=== PATIENT | male | born 1990 | race Two or more races ===

== ENCOUNTER 2025-09-23 22:59 | Inpatient (IN) | payer BC, MEDICAID ==
[~2025-09-23] VITALS: Ht 182.9 cm; Wt 82.2 kg
[2025-09-24] VITALS (8 sets, daily range): BP systolic 114–136; BP diastolic 67–84; PULSE 57–89; RESP 16–20; TEMP 97.6–98.3; O2SAT 96–98
[2025-09-24] MEDS: MORPHINE SULFATE 4 MG/ML SYR/VIAL IV ONE (00:18)
[2025-09-24] MEDS: ONDANSETRON HCL 4 MG/2 ML VIAL IV ONE (00:19)
--- NOTE | 2025-09-24 00:41 | ED.PDOC ---
History of Present Illness HPI Comments 35 y/o M is BIBA for c/c of left leg pain. Patient reports on injuring himself after slipping on a wet tile shad, while walking at home, earlier, this evening. He states on having no prior symptoms, losing consciousness, or sustaining any head or additional injuries. Patient comments on hearing a "crack" emanating from said leg when he injured it. Denial of any numbness, tingling, or further acute symptoms. Chief Complaint: Lower Extremity Time Seen by MD: 23:50 Reviewed Notes: Nurses Notes, Medications, Allergies Allergies: Coded Allergies: NO KNOWN ALLERGIES (Unverified , 09/23/25) Information Source: Patient Mode of Arrival: EMS Severity: Moderate Timing: Hours Duration: Since onset Prehospital treatment: 12 Lead EKG, [facility], Pain Meds Past Medical History PAST MEDICAL HISTORY: Denies Surgical History (Other): previous left knee surgery Family History Family History: Reviewed,noncontributory to illness Social History Smoker: Non-Smoker Alcohol: Denies ETOH Use Drugs: Denies Drug Use Lives In: Home All Other Systems: Reviewed and Negative (As per HPI) Physical Exam General Appearance: No Apparent Distress, Normal HEENT: Normal ENT Inspection, Pharynx Normal, TMs Normal Neck: Full Range of Motion, Non-Tender, Normal, Normal Inspection Respiratory: Chest Non-Tender, Lungs Clear, No Accessory Muscle Use, No Respiratory Distress, Normal Breath Sounds Cardiovascular: No Edema, No JVD, No Murmur, No Gallop, Normal Peripheral Pulses, Regular Rate/Rhythm Breast Exam: Deferred Gastrointestinal: No Organomegaly, Non Tender, No Pulsatile Mass, Normal Bowel Sounds, Soft Genitalia: Deferred Pelvic: Deferred Rectal: Deferred Extremities: No calf tenderness, Normal capillary refill, Normal range of motion, No pedal edema, Tender (left knee ), Other (large left knee effusion) Musculoskeletal : Apperance: Normal Neurologic: Alert, flat folder II-XII nml as Tested, No Motor Deficits, Normal Affect, Normal Mood, No Sensory Deficits Cerebellar Function: Normal Reflexes: Normal Skin: Dry, Normal Color, Warm Lymphatic: No Adenopathy Was a procedure done? Was a procedure done?: No Differential Dx Considerations may include: fractures, contusions, dislocation, sprain, strain, among others X-Ray, Labs, Meds, VS Vital Signs Date Time Temp Pulse Resp B/P (MAP) Pulse Ox O2 Delivery O2 Flow Rate FiO2 09/24/25 00:48 98 28 129/38 09/24/25 00:18 87 19 129/38 09/23/25 23:20 97.8 98 19 134/85 (101) 97 97.8 09/23/25 23:05 97.7 87 15 123/66 97 97.7 Lab Test 09/24/25 01:00 Range/Units White Blood Count 17.1 H 4.4-10.8 10^3/uL Red Blood Count 5.33 4.5-5.90 10^6/uL Hemoglobin 16.0 13.5-17.5 g/dL Hematocrit 47.2 41.0-53.0 % Mean Corpuscular Volume 88.6 80.0-100.0 fL Mean Corpuscular Hemoglobin 30.1 28.0-32.0 pg Mean Corpuscular Hemoglobin Concent 34.0 32.0-36.0 g/dL Red Cell Distribution Width 13.0 11.8-14.3 % Platelet Count 416 140-450 10^3/uL Mean Platelet Volume 7.4 6.9-10.8 fL Neutrophils (%) (Auto) 86.2 H 37.0-80.0 % Lymphocytes (%) (Auto) 10.9 10.0-50.0 % Monocytes (%) (Auto) 2.6 0.0-12.0 % Eosinophils (%) (Auto) 0.1 0.0-7.0 % Basophils (%) (Auto) 0.2 0.0-2.0 % Neutrophils # (Auto) 14.7 H 1.6-8.6 10 ^3/uL Lymphocytes # (Auto) 1.9 0.4-5.4 10 ^3/uL Monocytes # (Auto) 0.4 0-1.3 10 ^3/uL Eosinophils # (Auto) 0 0-0.8 10 ^3/uL Basophils # (Auto) 0 0-0.2 10 ^3/uL Nucleated Red Blood Cells 0.1 % Prothrombin Time 10.8 9.3-11.8 sec Prothrombin Time INR 1.02 0.9-1.15 Activated Partial Thromboplast Time 26.7 24.5-34.5 SEC Sodium Level 140 136-145 mmol/L Potassium Level 3.9 3.5-5.1 mmol/L Chloride Level 103 98-107 mmol/L Carbon Dioxide Level 24 20-31 mmol/L Anion Gap 13 5-15 Blood Urea Nitrogen 7 L 9-23 mg/dL Creatinine 0.87 0.700-1.30 mg/dL Glomerular Filtration Rate Calc 117 >90 mL/min BUN/Creatinine Ratio 8.0 L 10.0-20.0 Serum Glucose 80 74-106 mg/dL Calcium Level 9.3 8.7-10.4 mg/dL Current Medications Medications (Trade) Dose Ordered Sig/Leighann Route Start Time Stop Time Status Last Admin Morphine Sulfate 4 mg ONCE ONCE IV 09/24/25 00:00 09/24/25 00:01 DC 09/24/25 00:18 Ondansetron HCl (Zofran) 4 mg ONCE ONCE IV 09/24/25 00:00 09/24/25 00:01 DC 09/24/25 00:19 Sodium Chloride 1,000 ml @ 1,000 mls/hr Q1H ONCE IVB 09/24/25 01:00 09/24/25 01:59 DC 09/24/25 01:22 Time of 1ST Reevaluation: 00:20 Reevaluation 1ST: Unchanged Patient Education/Counseling: Diagnosis, Treatment Family Education/Counseling: No Family Present SEPSIS Sepsis Screen Date sepsis recognized/suspect: Sep 23, 2025 Time Sepsis recognized/suspect: 2304 Recent Procedure: No On Antibiotic Therapy: No Respiratory Rate >20: No Heart Rate >90: No Temp<36 C (96.8 F) or >38.3 C: No SBP <90 or MAP <65 mmHG: No New Acute Mental Status Change: No Is the patient on CPAP, BIPAP,: No Physician Orders L Femur Xray (09/23/25 23:57) L Tib Fib Xray (09/23/25 23:57) * Orthopedic Consult (09/24/25 00:50) Vital Signs Date Time Temp Pulse Resp B/P (MAP) Pulse Ox O2 Delivery O2 Flow Rate FiO2 09/24/25 00:48 98 28 129/38 09/24/25 00:18 87 19 129/38 09/23/25 23:20 97.8 98 19 134/85 (101) 97 97.8 09/23/25 23:05 97.7 87 15 123/66 97 97.7 Laboratory Tests Test 09/24/25 01:00 White Blood Count 17.1 10^3/uL (4.4-10.8) H Medications Medications Dose Ordered Sig/Leighann Route Start Time Stop Time Status Last Admin Dose Admin Morphine Sulfate 4 mg ONCE ONCE IV 09/24/25 00:00 09/24/25 00:01 DC 09/24/25 00:18 Ondansetron HCl 4 mg ONCE ONCE IV 09/24/25 00:00 09/24/25 00:01 DC 09/24/25 00:19 Sodium Chloride 1,000 ml @ 1,000 mls/hr Q1H ONCE IVB 09/24/25 01:00 09/24/25 01:59 DC 09/24/25 01:22 Departure 1 Departure Time of Disposition: 02:13 Impression: Primary Impression: Closed fracture of left femur with malunion Disposition: ADMITTED INPATIENT Admit to: Med Surg Condition: Guarded Discharged With: Self Comments 35-year-old man with previous hardware in his left hip from a prior fracture now with a closed oblique left distal femur fracture that is somewhat displaced. He is neurovascularly intact. I ordered orthopedic consultation and preop laboratory workup. Patient will need to be admitted for supportive care and orthopedic consultation. Critical Care Note Critical Care Time?: No Stability Stability form required: No Heart Score Heart Score: Heart Score Response (Comments) Value History N/A 0 EKG N/A 0 Age N/A 0 Risk Factors N/A 0 Troponin N/A 0 Total 0 I personally scribed for SAPPHIRE ENCINAS MD ([email or web address]) on 09/24/25 at 00:41. Electronically submitted by Link Fernandes ([email or web address]). SAPPHIRE ENCINAS MD Sep 24, 2025 00:41
[2025-09-24 01:13] LABS: Hematocrit 47.2 % (41.0-53.0); Hemoglobin 16.0 g/dL (13.5-17.5); Mean Corpuscular Hemoglobin 30.1 pg (28.0-32.0); Mean Corpuscular Volume 88.6 fL (80.0-100.0); Nucleated Red Blood Cells % 0.1 %
[2025-09-24 01:18] LABS: Chloride 103 mmol/L (98-107); Potassium 3.9 mmol/L (3.5-5.1); Sodium 140 mmol/L (136-145)
[2025-09-24 01:19] LABS: Anion Gap 13 (5-15); Calcium 9.3 mg/dL (8.7-10.4); Carbon Dioxide 24 mmol/L (20-31)
--- NOTE | 2025-09-24 01:21 | DVH ---
EXAM: XY L TIB FIB XRAY, XY L FEMUR XRAY REASON FOR EXAM: Pain s/p fall. TECHNIQUE: Four views of the left femur and two views of the left tibia/fibula. COMPARISON: None available. FINDINGS: Acute jkum-vd-kuraihfygl displaced oblique fracture of the distal femoral diaphysis with approximately 26 mm displacement. No acute fracture or dislocation of the tibia or fibula. Extensive hardware fixation of the proximal tibia. Hardware appears intact. Euvuyzjo-uh-yphutk arthritis of the knee with greater than 50% joint space narrowing in the lateral compartment and less than 50% joint space narrowing in the medial compartment in addition to mild tricompartmental osteophytosis. Questionable mild demineralization of the osseous structures. Soft tissues are unremarkable. IMPRESSION: 1. Acute zezp-ch-vvpqrzjsku displaced oblique fracture of the left distal femoral diaphysis. 2. No acute fracture or dislocation of the left tibia or fibula. 3. Extensive hardware fixation of the left proximal tibia. Hardware appears intact. 4. Hdnwkzkf-nm-quodcg arthritis of the left knee.
--- NOTE | 2025-09-24 01:21 | DVH ---
EXAM: XY L TIB FIB XRAY, XY L FEMUR XRAY REASON FOR EXAM: Pain s/p fall. TECHNIQUE: Four views of the left femur and two views of the left tibia/fibula. COMPARISON: None available. FINDINGS: Acute rayz-qv-yvwokysoft displaced oblique fracture of the distal femoral diaphysis with approximately 26 mm displacement. No acute fracture or dislocation of the tibia or fibula. Extensive hardware fixation of the proximal tibia. Hardware appears intact. Ybzujftx-nd-ppqfqc arthritis of the knee with greater than 50% joint space narrowing in the lateral compartment and less than 50% joint space narrowing in the medial compartment in addition to mild tricompartmental osteophytosis. Questionable mild demineralization of the osseous structures. Soft tissues are unremarkable. IMPRESSION: 1. Acute ncqs-le-kqalicopkk displaced oblique fracture of the left distal femoral diaphysis. 2. No acute fracture or dislocation of the left tibia or fibula. 3. Extensive hardware fixation of the left proximal tibia. Hardware appears intact. 4. Gjfpzsex-kg-pyinhl arthritis of the left knee.
[2025-09-24] MEDS: SODIUM CHLORIDE 0.9% 1,000 ML IVB ONE (01:22)
[2025-09-24 01:24] LABS: BUN/Creatinine Ratio 8.0 (10.0-20.0); Glucose 80 mg/dL (74-106)
[2025-09-24 01:27] LABS: INR 1.02 (0.9-1.15); Partial Thromboplastin Time 26.7 SEC (24.5-34.5); Prothrombin Time 10.8 sec (9.3-11.8)
[2025-09-24 01:29] LABS: Blood Urea Nitrogen 7 mg/dL (9-23)
[2025-09-24] MEDS ORDERED: MORPHINE SULFATE INJ 2 MG/ml SYRG IV PRN ×2 (02:15→02:45)
[2025-09-24] MEDS: D5W/SOD CHL 0.45% 1,000 ML IV SCH (02:15)
[2025-09-24] MEDS ORDERED: DOCUSATE SOD 100 MG CAP PO PRN (02:15)
[2025-09-24] MEDS ORDERED: ONDANSETRON HCL 4 MG/2 ML VIAL IV PRN (02:15)
[2025-09-24] MEDS ORDERED: ACETAMINOPHEN 325 MG TAB PO PRN (02:15)
[2025-09-24] MEDS ORDERED: NITROGLYCERIN 0.4 MG SL TAB SL PRN (02:45)
--- NOTE | 2025-09-24 02:50 | DVHHP2 ---
History of Present Illness Reason for Visit: Fall with injury History of Present Illness The patient is a 35-year-old male who denies past medical history presented to [facility] ED with complaint of left leg pain. Patient reports that his slipped and fell on a wet tile floor at home earlier this evening with sust ained injury. Patient was seen and evaluated in the ED, laboratory data shows WBC 17.1, platelets 416, sodium 140, potassium 3.9, BUN 7, creatinine 0.87, GFR 117, glucose 80, calcium 9.3, blood pressure 129/38, heart rate 98, temperature 97.8 F, O2 saturation 97% on room air. Left femur x-ray revealing acute mild to moderate displaced oblique fracture of the left distal femoral diaphysis. Please see medication orders section in the computer. On my assessment, patient denied chest pain, no headache, dizziness, loss of consciousness, diaphoresis, shortness of breaths, no abdominal pain, diarrhea, nausea, vomiting, fever, no chills. Patient was admitted for further evaluation and medical management. Past Medical History Denies past medical history Past Surgical History Left knee surgery Family History Reviewed, noncontributory to the management of this case. Past Social History The patient lives at home, denies smoking, alcohol or illicit drugs abuse. Review of Systems Constitutional: No: Fever, Chills, Sweats, Weakness, Malaise, Other Eyes: No: Pain, Vision change, Conjunctivae inflammation, Eyelid inflammation, Other, Redness ENT: No: Ear pain, Ear discharge, Nose pain, Nose discharge, Nose congestion, Mouth pain, Mouth swelling, Throat pain, Throat swelling, Other Respiratory: No: Cough, Dry, Shortness of breath, SOB with excertion, Wheezing, Hemoptysis, Pleuritic Pain, Sputum, Wheezing, Other Cardiovascular: No: Chest Pain, Palpitations, Orthopnea, Paroxysmal Noc. Dyspnea, Edema, Lt Headedness, Other Gastrointestinal: No: Nausea, Vomiting, Abdominal Pain, Diarrhea, Constipation, Melena, Hematochezia, Other Genitourinary: No Dysuria, No Frequency, No Incontinence, No Hematuria, No Retention, No Other Musculoskeletal: leg pain (Left); No: other, neck pain, shoulder pain, arm pain, back pain, hand pain, foot pain Skin: No: Rash, Lesions, Jaundice, Bruising, Other Neurological: No: Weakness, Numbness, Incoordination, Change in speech, Confusion, Seizures, Other Allergies: Coded Allergies: NO KNOWN ALLERGIES (Unverified , 09/23/25) Medications Current Medications Medications Dose Ordered Sig/Leighann Route Start Time Stop Time Status Last Admin Dose Admin Acetaminophen/ Hydrocodone Bitart 1 tab Q4HP PRN PO 09/24/25 02:15 Ondansetron HCl 4 mg Q4HP PRN IV 09/24/25 02:15 Docusate Sodium 100 mg BIDPRN PRN PO 09/24/25 02:15 Enoxaparin Sodium 40 mg DAILY SC 09/24/25 10:00 Acetaminophen 650 mg Q6HP PRN PO 09/24/25 02:15 Morphine Sulfate 2 mg Q4HPRN PRN IV 09/24/25 02:15 Ceftriaxone Sodium 50 ml @ 100 mls/hr DAILY@09 IV 09/25/25 09:00 Dextrose/Sodium Chloride 1,000 ml @ 75 mls/hr [id number] IV 09/24/25 02:15 Exam Vital Signs Vital Signs Date Time Temp Pulse Resp B/P (MAP) Pulse Ox O2 Delivery O2 Flow Rate FiO2 09/24/25 00:48 98 28 129/38 09/23/25 23:20 97.8 97 97.8 General Appearance: Alert, Oriented X3, Cooperative, No acute distress HEENT: Atraumatic, PERRLA, EOMI, Mucous membr. moist/pink Respiratory: Clear to auscultation, Normal air movement Cardiovascular: Regular rate, Normal S1, Normal S2, No murmurs Abdominal: Normal bowel sounds, Soft, No tenderness, No hepatospenomegaly, No masses Extremities: No clubbing, No cyanosis, No edema, Normal pulses, Other (Left leg tenderness.) Skin: No rashes, No significant lesion Neuro: Normal speech, Normal tone, Sensation intact, Cranial nerves 3-12 NL, Reflexes 2+, Other (Unsteady gait) Psych/Mental Status: Mental status NL, Mood NL Labs/Xrays Labs Test 09/24/25 01:00 Range/Units White Blood Count 17.1 H 4.4-10.8 10^3/uL Red Blood Count 5.33 4.5-5.90 10^6/uL Hemoglobin 16.0 13.5-17.5 g/dL Hematocrit 47.2 41.0-53.0 % Mean Corpuscular Volume 88.6 80.0-100.0 fL Mean Corpuscular Hemoglobin 30.1 28.0-32.0 pg Mean Corpuscular Hemoglobin Concent 34.0 32.0-36.0 g/dL Red Cell Distribution Width 13.0 11.8-14.3 % Platelet Count 416 140-450 10^3/uL Mean Platelet Volume 7.4 6.9-10.8 fL Neutrophils (%) (Auto) 86.2 H 37.0-80.0 % Lymphocytes (%) (Auto) 10.9 10.0-50.0 % Monocytes (%) (Auto) 2.6 0.0-12.0 % Eosinophils (%) (Auto) 0.1 0.0-7.0 % Basophils (%) (Auto) 0.2 0.0-2.0 % Neutrophils # (Auto) 14.7 H 1.6-8.6 10 ^3/uL Lymphocytes # (Auto) 1.9 0.4-5.4 10 ^3/uL Monocytes # (Auto) 0.4 0-1.3 10 ^3/uL Eosinophils # (Auto) 0 0-0.8 10 ^3/uL Basophils # (Auto) 0 0-0.2 10 ^3/uL Nucleated Red Blood Cells 0.1 % Prothrombin Time 10.8 9.3-11.8 sec Prothrombin Time INR 1.02 0.9-1.15 Activated Partial Thromboplast Time 26.7 24.5-34.5 SEC Sodium Level 140 136-145 mmol/L Potassium Level 3.9 3.5-5.1 mmol/L Chloride Level 103 98-107 mmol/L Carbon Dioxide Level 24 20-31 mmol/L Anion Gap 13 5-15 Blood Urea Nitrogen 7 L 9-23 mg/dL Creatinine 0.87 0.700-1.30 mg/dL Glomerular Filtration Rate Calc 117 >90 mL/min BUN/Creatinine Ratio 8.0 L 10.0-20.0 Serum Glucose 80 74-106 mg/dL Calcium Level 9.3 8.7-10.4 mg/dL PATIENT: NANCY FRIEDMAN ACCT: [id number] UNIT: [id number] : 1990 LOC: ER ROOM / BED: / AGE / SEX: 35 / M ADM STATUS: REG ER SERVICE 1324 ORDERING PHYSICIAN: SAPPHIRE ENCINAS MD PROCEDURE(s): LFEM - L FEMUR XRAY REASON: pain s/p fall ORDER NUMBER(s): [id number], ACCESSION NUMBER(s): [id number] EXAM: XY L TIB FIB XRAY, XY L FEMUR XRAY REASON FOR EXAM: Pain s/p fall. TECHNIQUE: Four views of the left femur and two views of the left tibia/fibula. COMPARISON: None available. FINDINGS: Acute gajv-da-vcvderqizl displaced oblique fracture of the distal femoral diaphy sis with approximately 26 mm displacement. No acute fracture or dislocation of the tibia or fibula. Extensive hardware fixation of the proximal tibia. Hardware appears intact. Cvushpwv-jt-yugblv arthritis of the knee with greater than 50% joint space narr owing in the lateral compartment and less than 50% joint space narrowing in the medial compartment in addition to mild tricompartmental osteophytosis. Questionable mild demineralization of the osseous structures. Soft tissues are unremarkable. IMPRESSION: 1. Acute toyo-bf-gcbrtixucc displaced oblique fracture of the left distal femoral diaphysis. 2. No acute fracture or dislocation of the left tibia or fibula. 3. Extensive hardware fixation of the left proximal tibia. Hardware appears intact. 4. Gbxnymjz-rw-wykcvl arthritis of the left knee. ORDERING PHYSICIAN: SAPPHIRE ENCINAS MD PROCEDURE(s): LTBFB - L TIB FIB XRAY REASON: pain s/p fall ORDER NUMBER(s): [id number], ACCESSION NUMBER(s): [id number] EXAM: XY L TIB FIB XRAY, XY L FEMUR XRAY REASON FOR EXAM: Pain s/p fall. TECHNIQUE: Four views of the left femur and two views of the left tibia/fibula. COMPARISON: None available. FINDINGS: Acute vpbg-rn-firxroimmy displaced oblique fracture of the distal femoral diaphysis with approximately 26 mm displacement. No acute fracture or dislocation of the tibia or fibula. Extensive hardware fixation of the proximal tibia. Hardware appears intact. Ldftrlsr-uq-hjboni arthritis of the knee with greater than 50% joint space narrowing in the lateral compartment and less than 50% joint space narrowing in the medial compartment in addition to mild tricompartmental osteophytosis. Questionable mild demineralization of the osseous structures. Soft tissues are unremarkable. IMPRESSION: 1. Acute iall-ly-cjqcmfwytz displaced oblique fracture of the left distal femoral diaphysis. 2. No acute fracture or dislocation of the left tibia or fibula. 3. Extensive hardware fixation of the left proximal tibia. Hardware appears intact. 4. Jhoqnuqp-lw-gkyogw arthritis of the left knee. SEPSIS Sepsis Screen Date sepsis recognized/suspect: Sep 24, 2025 Time Sepsis recognized/suspect: 105 Recent Procedure: No On Antibiotic Therapy: No Respiratory Rate >20: No Heart Rate >90: Yes Temp<36 C (96.8 F) or >38.3 C: No SBP <90 or MAP <65 mmHG: No New Acute Mental Status Change: No Is the patient on CPAP, BIPAP,: No Physician Orders L Femur Xray (09/23/25 23:57) L Tib Fib Xray (09/23/25 23:57) * Orthopedic Consult (09/24/25 00:50) Complete Blood Count (09/24/25 04:00) Comprehensive Metabolic Panel (09/24/25 04:00) Allergies (09/24/25 02:10) Code Status (09/24/25 02:10) Oxygen Per Hour (09/24/25 02:10) Hydrocodone-Acet 5/325mg Tab ([place] 5/32 (09/24/25 02:15) Ondansetron Hcl (Zofran) (09/24/25 02:15) Docusate Sodium Capsule (Colace Capsule) (09/24/25 02:15) Enoxaparin Sodium (Lovenox) (09/24/25 10:00) Fall Risk Precautions In Place QSHIFT (09/24/25 02:10) Complete Blood Count (09/25/25 04:00) Comprehensive Metabolic Panel (09/25/25 04:00) Condition: Serious (09/24/25 02:10) Acetaminophen Tablet (Tylenol Tablet) (09/24/25 02:15) Clear Liq Diet (09/24/25 Breakfast) Maintain Bed Rest (09/24/25 02:10) Morphine Sulfate Injection (09/24/25 02:15) Sequential Compression Device (09/24/25 ) Ceftriaxone 1gm/50ml (Rocephin) (09/24/25 02:15) Blood Culture (09/24/25 02:10) D5w/Sod Chl 0.45% (D5w 1/2ns) (09/24/25 02:15) Ceftriaxone 1gm/50ml (Rocephin) (09/25/25 09:00) Admit (09/24/25 02:32) Nitroglycerin Sublingual (Ntrostat Subli (09/24/25 02:45) Morphine Sulfate Injection (09/24/25 02:45) Notify Md Of Changes From Base (09/24/25 02:32) Brim Cutter For 24 Hours (09/24/25 02:32) Emergency Dysrhythmia Protocol (09/24/25 02:32) Rhythm Strips Once Every Shift (09/24/25 02:32) Oxygen By Nasal Cannula (09/24/25 02:32) Stat Ekg For Chest Pain (09/24/25 02:32) Vital Signs Date Time Temp Pulse Resp B/P (MAP) Pulse Ox O2 Delivery O2 Flow Rate FiO2 09/24/25 00:48 98 28 129/38 09/24/25 00:18 87 19 129/38 09/23/25 23:20 97.8 98 19 134/85 (101) 97 97.8 09/23/25 23:05 97.7 87 15 123/66 97 97.7 Laboratory Tests Test 09/24/25 01:00 White Blood Count 17.1 10^3/uL (4.4-10.8) H Medications Medications Dose Ordered Sig/Leighann Route Start Time Stop Time Status Last Admin Dose Admin Morphine Sulfate 4 mg ONCE ONCE IV 09/24/25 00:00 09/24/25 00:01 DC 09/24/25 00:18 4 MG Ondansetron HCl 4 mg ONCE ONCE IV 09/24/25 00:00 09/24/25 00:01 DC 09/24/25 00:19 4 MG Sodium Chloride 1,000 ml @ 1,000 mls/hr Q1H ONCE IVB 09/24/25 01:00 09/24/25 01:59 DC 09/24/25 01:22 1,000 MLS/HR Assessment/Plan Assessment/Plan Fall with injury Leukocytosis, unspecified Closed fracture of left femur with malunion Plan 1. Admit to telemetry unit 2. Breathing treatment 3. Pain control management 4. IV antibiotic management 5. Management of fluids and electrolytes 6. Consultation for orthopedic 7. Diagnostic test left femur x-ray 8. DVT prophylaxis-on Lovenox 9. Repeat labs CBC, CMP in a.m. 10. Continue with current medical management 11. Treatment plan discussed with patient and RN. Patient verbalized understanding. Plan discussed with: Patient, Other (RN) My Orders Orders - GILLIAN HARDWICK DNP Procedure Category Date Status Time Complete Blood Count LAB 09/24/25 Logged 04:00 Comprehensive LAB 09/24/25 Logged Metabolic Panel 04:00 Allergies JARVIS 09/24/25 In Process 02:10 Code Status CODE 09/24/25 Transmitted 02:10 Oxygen Per Hour RT 09/24/25 Transmitted 02:10 Hydrocodone-Acet PHA 09/24/25 In Process 5/325mg Tab ([place] 02:15 Ondansetron Hcl PHA 09/24/25 In Process (Zofran) 02:15 Docusate Sodium PHA 09/24/25 In Process Capsule (Colace 02:15 Enoxaparin Sodium PHA 09/24/25 In Process (Lovenox) 10:00 Fall Risk Precautions JARVIS 09/24/[address] 02:10 Complete Blood Count LAB 09/25/25 Verified 04:00 Comprehensive LAB 09/25/25 Verified Metabolic Panel 04:00 Condition: Serious JARVIS 09/24/25 In Process 02:10 Acetaminophen Tablet PHA 09/24/25 In Process (Tylenol Tablet) 02:15 Clear Liq Diet DIET 09/24/25 Transmitted Breakfast Maintain Bed Rest JARVIS 09/24/25 In Process 02:10 Morphine Sulfate PHA 09/24/25 In Process Injection 02:15 Sequential JARVIS 09/24/25 In Process Compression Device Ceftriaxone 1gm/50ml PHA 09/24/25 In Process (Rocephin) 02:15 Blood Culture [facility] 09/24/25 Logged 02:10 D5w/Sod Chl 0.45% PHA 09/24/25 In Process (D5w 1/2ns) 02:15 Ceftriaxone 1gm/50ml PHA 09/25/25 In Process (Rocephin) 09:00 Admit ADMIT 09/24/25 Transmitted 02:32 Nitroglycerin PHA 09/24/25 Transmitted Sublingual (Ntrostat 02:45 Morphine Sulfate PHA 09/24/25 Transmitted Injection 02:45 Notify Of Changes [facility] 09/24/25 Transmitted From Base 02:32 Brim Cutter For [facility] 09/24/25 Transmitted 24 Hours 02:32 Emergency Dysrhythmia [facility] 09/24/25 Transmitted Protocol 02:32 Rhythm Strips Once [facility] 09/24/25 Transmitted Every Shift 02:32 Oxygen By Nasal RT 09/24/25 Transmitted Cannula 02:32 Stat Ekg For Chest [facility] 09/24/25 Transmitted Pain 02:32 Problem List: (1) Fall with injury (2) Leukocytosis, unspecified (3) Closed fracture of left femur with malunion Date of Service: Sep 24, 2025 Billing Provider: GILLIAN HARDWICK DNP Common Visit Codes: [id number] INP/OBS CARE (HIGH) GILLIAN HARDWICK DNP Sep 24, 2025 02:50
[2025-09-24 03:04] LABS: Hematocrit 43.4 % (41.0-53.0); Hemoglobin 14.7 g/dL (13.5-17.5); Mean Corpuscular Hemoglobin 30.3 pg (28.0-32.0); Mean Corpuscular Volume 89.4 fL (80.0-100.0); Nucleated Red Blood Cells % 0.0 %
[2025-09-24 03:29] LABS: Albumin 4.5 g/dL (3.2-4.8); Anion Gap 12 (5-15); BUN/Creatinine Ratio 8.8 (10.0-20.0); Bilirubin, Total 0.5 mg/dL (0.2-1.0); Carbon Dioxide 23 mmol/L (20-31); Chloride 105 mmol/L (98-107); Potassium 3.7 mmol/L (3.5-5.1); Sodium 140 mmol/L (136-145); Total Protein 7.5 g/dL (5.7-8.2)
[2025-09-24 03:35] LABS: Alanine Aminotransferase 59 U/L (7-40); Alkaline Phosphatase 117 U/L (46-116); Blood Urea Nitrogen 7 mg/dL (9-23); Calcium 8.6 mg/dL (8.7-10.4); Glucose 73 mg/dL (74-106)
[2025-09-24] MEDS: HYDROcodone-ACET 5/325MG TAB PO PRN (07:21)
[2025-09-24] MEDS: KETOROLAC TROMETH 30 MG/ML 1ML VIAL IV ONE (08:10)
[2025-09-24] MEDS: ENOXAPARIN SOD 40 MG/0.4 ML SYRINGE SC SCH (10:00)
--- NOTE | 2025-09-24 10:10 | DVH ---
US limited, RUQ INDICATION: HEPATOSTEATOSIS COMPARISON: None TECHNIQUE: Limited ultrasound of the abdomen was performed and reviewed. FINDINGS: The pancreas is partially obscured by bowel gas. Unremarkable homogeneous liver echogenicity. Limited evaluation of the gallbladder as the patient was unable to turn. No evidence of cholelithiasis or gallbladder wall thickening. Negative sonographic Ley's sign. The common bile duct measures 7 mm. The right kidney is 10.5 cm. No evidence for hydronephrosis. IMPRESSION: Apparent mild common bile duct dilatation measuring up to 7 mm. Correlate with laboratory analysis to assess for possible biliary obstruction.
[2025-09-24] MEDS: HYDROmorphone HCL 2 MG/ML VL/or syr IV PRN (10:38)
--- NOTE | 2025-09-24 13:06 | DVHINCON2 ---
Consult Note Consult Consult Note Consulting Service: Orthopedic Surgery Reason for Consult: Left distal femur fracture History of Present Illness Mr. Link James is a patient who presents status post ground-level fall occurring one day prior to evaluation. The patient reports falling directly onto a flexed left knee, immediately experiencing sudden onset pain, swelling, and inability to bear weight on the left lower extremity. He was evaluated in the emergency department where X-rays demonstrated a distal femur fracture, and he was subsequently admitted as an inpatient. Orthopedic surgery was consulted for further evaluation and management. The patient denies numbness, tingling, or weakness in the left lower extremity. Pain is currently well controlled. Past Orthopedic History: History of left medial tibial plateau fracture, status post open reduction and internal fixation with plate and screws approximately two years ago, now healed. Patient reports residual mild flexion posture of the left knee and ambulates with slight flexion since that surgery. Past Medical History Reviewed per chart. Past Surgical History Right tibial plateau ORIF (healed) Medications Reviewed per chart. Physical Examination General: Awake, alert, in no acute distress. Left Lower Extremity: Significant swelling about the left knee No open wounds or skin compromise No erythema, warmth, or signs of infection Compartments of the quadriceps and calf are soft Neurovascularly intact: Able to wiggle toes and ankle Sensation intact No numbness or tingling No pain out of proportion to exam Imaging X-ray of the left femur/knee reviewed Findings consistent with distal femur fracture Assessment Left distal femur fracture status post ground-level fall History of left tibial plateau ORIF, healed Plan Discussed treatment options with the patient including: Open versus closed reduction Intramedullary nail versus plate fixation Risks, benefits, and alternatives were discussed. Surgical consent completed (obtained by nursing staff). NPO after midnight Plan for operative fixation tomorrow with Dr. Parks Continue pain control Maintain zsu-zutbui-oxiwyxb to the left lower extremity until surgery. Placed in Long Leg Splint with mild flexion Monitor neurovascular status every 2 Hrs Patient was seen and examined. All questions were answered, and the patient agrees with the plan. Plan discussed with: Patient, Other (bedside nurse) Visit Coding Surgery Date of Service if different f: Sep 24, 2025 Billing Provider: YOUNG RODRIGEZ Surgery Visit Codes: 64474 - INP CONSULT <55 MIN YOUNG RODRIGEZ Sep 24, 2025 13:06
--- NOTE | 2025-09-24 13:26 | DVH ---
CHEST RADIOGRAPH INDICATION: PNA TECHNIQUE: Single frontal view of the chest was obtained COMPARISON: None FINDINGS: Lines and Tubes: None Lungs: No focal consolidation. Diffuse reticular opacities may reflect atypical pneumonia versus mild pulmonary edema. Pleura: No effusion. No pneumothorax. Cardiomediastinal contours: Unremarkable Bones: No acute osseous abnormality. IMPRESSION: 1. Diffuse reticular opacities may reflect atypical pneumonia versus mild pulmonary edema.
--- NOTE | 2025-09-24 14:22 | DVH ---
INDICATION: FRACTURE LEFT FEMUR COMPARISON: XY L FEMUR XRAY on DOS: 09/24/25, XY L TIB FIB XRAY on DOS: 09/24/25 TECHNIQUE: CT of the left femur was performed without contrast. Volume transverse images were obtained and reconstructed in multiple planes using bone and soft tissue algorithms. Radiation Dose Information: CT Dose: CTDI volume is 16.19 mGy. Dose-length product is 7.3 mGy*cm FINDINGS: Moderate lipohemarthrosis involving the knee joint. Extensive surgical hardware is partially imaged in the proximal tibia. Redemonstration of moderately displaced oblique fracture of the distal femoral diaphysis. IMPRESSION: Redemonstration of moderately displaced oblique fracture of the distal femoral diaphysis. Moderate lipohemarthrosis involving the knee joint. All CT scans at this medical facility are performed using dose modulation techniques as appropriate to a performed exam including the following: Automated exposure control was utilized; adjustment of the MA and/or KV according to patient size; and use of iterative reconstruction technique.
--- NOTE | 2025-09-24 16:25 | DVHPNRES ---
Progress Note Date Seen: Sep 24, 2025 Resident Creating Document: HECTOR COOK RESIDENT Medical Necessity Reason Pt with a Central, PICC or Fol: No Subjective Review of Systems Patient is 35-year-old male who denies past medical history presented to [facility] ED with complaint of left leg pain. Patient reports that his slipped and fell on a wet tile floor at home earlier this evening with sustained injury. Patient was seen and evaluated in the ED, laboratory data shows WBC 17.1, platelets 416, sodium 140, potassium 3.9, BUN 7, creatinine 0.87, GFR 117, glucose 80, calcium 9.3, AST 47, ALT 59, alkaline phosphatase 117, vitamin-D 23.4. Blood alcohol level 139.6, Left femur x-ray- Acute jotl-zo-qumwpiccrp displaced oblique fracture of the left distal femoral diaphysis.Extensive hardware fixation of the left proximal tibia. Hardware appears intact. Bsaxfdji-lh-srhxnr arthritis of the left knee. CT Scan of the left lower extremity- Redemonstration of moderately displaced oblique fracture of the distal femoral diaphysis.Moderate lipohemarthrosis involving the knee joint. Ultrasound of the liver revealed- Apparent mild common bile duct dilatation measuring up to 7 mm. Correlate with laboratory analysis to assess for possible biliary obstruction. CXR- Diffuse reticular opacities may reflect atypical pneumonia versus mild pulmonary edema. PMH-none PSH- left tibial surgery Allergy- NKDA Personal History/ Social History- occasional alcoholic, denies substance abuse, lives with the family Patient was seen today at the bedside. Patient Cardiovascular- deny acute chest pain or shortness of breath or cough or palpitation Respiratory denies cough or short of breath or wheezing Gastrointestinal- denies any rectal bleeding, nausea or vomiting Musculoskeletal-denies acute joint swelling or tenderness or redness Neurological- denies acute dysarthria, dysphagia, change in vision Psychiatry- denies depression or SI or HI Skin- denies acute rash or purpura Patient was seen today at bedside Labs and chart reviewed Left femur x-ray- Acute xadt-ii-twpddojdyr displaced oblique fracture of the left distal femoral diaphysis.Extensive hardware fixation of the left proximal tibia. Hardware appears intact. Xhyoattk-hu-tdtaad arthritis of the left knee. CT Scan of the left lower extremity- Redemonstration of moderately displaced oblique fracture of the distal femoral diaphysis.Moderate lipohemarthrosis involving the knee joint. Ultrasound of the liver revealed- Apparent mild common bile duct dilatation measuring up to 7 mm. Correlate with laboratory analysis to assess for possible biliary obstruction. CXR- Diffuse reticular opacities may reflect atypical pneumonia versus mild pulmonary edema. ADP palpable, intractable touch sensation in the left foot Patient was seen by orthopedic surgeon recommended for-Open versus closed reduction. Intramedullary nail versus plate fixation Objective vital signs Vital Sign Date Time Temp Pulse Resp B/P (MAP) Pulse Ox O2 Delivery O2 Flow Rate FiO2 09/24/25 12:37 98.2 84 18 133/84 (100) 98 98.2 09/24/25 07:50 Room Air* 0 21 Total Intake and Output 09/23/25 09/23/25 09/24/25 15:00 23:00 07:00 Intake Total 75 ml Balance 75 ml medications Current Medications Medications Dose Ordered Sig/Leighann Route Start Time Stop Time Status Last Admin Dose Admin Acetaminophen/ Hydrocodone Bitart 1 tab Q4HP PRN PO 09/24/25 02:15 09/24/25 07:21 1 TAB Ondansetron HCl 4 mg Q4HP PRN IV 09/24/25 02:15 Docusate Sodium 100 mg BIDPRN PRN PO 09/24/25 02:15 Enoxaparin Sodium 40 mg DAILY SC 09/24/25 10:00 Acetaminophen 650 mg Q6HP PRN PO 09/24/25 02:15 Ceftriaxone Sodium 50 ml @ 100 mls/hr DAILY@09 IV 09/25/25 09:00 Dextrose/Sodium Chloride 1,000 ml @ 75 mls/hr [id number] IV 09/24/25 02:15 09/24/25 02:15 75 MLS/HR Nitroglycerin 0.4 mg Q5MINP PRN SL 09/24/25 02:45 Morphine Sulfate 2 mg Q30M PRN IV 09/24/25 02:45 Hydromorphone HCl 0.25 mg Q4HPRN PRN IV 09/24/25 09:45 09/24/25 10:38 0.25 MG Examination General examination- awake, alert, oriented HEENT- PEERLA, no acute nasal discharge Cardiovascular- S1-S2 audible, rate and rhythm regular, no murmur Respiratory- CTAB, no wheeze or rhonchi Gastrointestinal-nontender, bowel sound+. Nondistended Musculoskeletal-no acute joint swelling or tenderness or redness Lower extremity- pain and tenderness above of the left knee Neurological- cranial nerves intact, no acute dysarthria or dysphagia Psychiatry- denies depression or SI or HI Skin- no acute rash or purpura laboratory and microbiology Laboratory Tests 09/24/25 02:30 Test 09/24/25 02:30 Range/Units Serum Glucose 73 L 74-106 mg/dL Problem List/Assessment/Plan Problem List/Assessment/Plan Assessment and plan # fracture left distal diaphysis of femur # status post fall -Left femur x-ray- Acute bkwg-vo-guqrwxarwf displaced oblique fracture of the left distal femoral diaphysis.Extensive hardware fixation of the left proximal tibia. Hardware appears intact. Iotwnxjo-up-ozboco arthritis of the left knee. -CT Scan of the left lower extremity- Redemonstration of moderately displaced oblique fracture of the distal femoral diaphysis.Moderate lipohemarthrosis involving the knee joint. ADP palpable, intractable touch sensation in the left foot -Patient was seen by orthopedic surgeon recommended for-Open versus closed reduction. Intramedullary nail versus plate fixation -NPO after midnight -continue current conservative management # transaminitis -Ultrasound of the liver revealed- Apparent mild common bile duct dilatation measuring up to 7 mm. -monitor liver function test # history of alcoholism -counseled about the effect of alcoholism on health # toxic encephalopathy # alcohol intoxication -serum alcohol level 139.6 -patient on CIWA protocol -ordered thiamine and folic acid supplement -ordered banana bag Goals of care, Code status full code ; discussed with >15 minutes PUD prophylaxis: Pantoprazole DVT prophylaxis: Lovenox Plan discussed with Dr. Bolivar , nursing staff, Total time spent on patient evaluation, chart review, assessment and plan, discussion discussion >35 minutes Plan discussed with: Patient, Spouse, Other (RN) My Orders My Orders Orders - HECTOR COOK RESIDENT Procedure Category Date Status Time LIVER US 09/24/25 Resulted 08:53 Drug Screen LAB 09/24/25 Logged 08:53 Chest Xray 1 View XY 09/24/25 Resulted 08:53 Electrocardigram EKG 09/24/25 Logged 08:53 Hydromorphone PHA 09/24/25 In Process Injection (Dilaudid 09:45 * Orthopedic Consult CONS 09/24/25 Transmitted 09:57 Ct L Femur Wo Contrast CT 09/24/25 Resulted 10:22 Regular Diet DIET 09/24/25 Transmitted Dinner Visit Coding STANDARD RES Billing Provider: TALA CARDONA MD Date of Service if different f: Sep 24, 2025 Common Visit Codes: [id number] INP/OBS CARE(HIGH) HECTOR COOK RESIDENT Sep 24, 2025 16:25
[2025-09-24] MEDS ORDERED: LORazepam 2MG/ML-1ML VIAL IV PRN (16:30)
[2025-09-24] MEDS: THIAMINE 100mg/ml INJ (200mg/2ml VIAL) IV ONE (16:44)
[2025-09-24] MEDS: FOLIC ACID 1 MG, MAGNESIUM SULF SDV 50% 8 MEQ, MULTIPLE VITAMIN 10 ML, THIAMINE INJ 100... INJ SCH (17:52)
[2025-09-24 20:47] LABS: Opiate Scree,Urine Pos (NEGATIVE)
[2025-09-24 21:05] LABS: Amphetamine Screen, Urine Neg (NEGATIVE); Barbiturate Scree,Urine Neg (NEGATIVE); Benzodiazephine Screen, Urine Neg (NEGATIVE); Cannabinoid Screen, Urine Neg (NEGATIVE); Cocaine Screen, Urine Pos (NEGATIVE); Phencyclidine Screen, Urine Neg (NEGATIVE)
[2025-09-24 21:08] LABS: Urine Protein, UAD TRACE (Negative)
[2025-09-25] VITALS (7 sets, daily range): BP systolic 129–144; BP diastolic 76–94; PULSE 61–84; RESP 16–20; TEMP 97.1–98.2; O2SAT 97–99
[2025-09-25 06:12] LABS: Hematocrit 39.4 % (41.0-53.0); Hemoglobin 13.5 g/dL (13.5-17.5); Mean Corpuscular Hemoglobin 30.5 pg (28.0-32.0); Mean Corpuscular Volume 89.2 fL (80.0-100.0); Nucleated Red Blood Cells % 0.0 %
[2025-09-25 06:26] LABS: Alanine Aminotransferase 39 U/L (7-40); Albumin 3.9 g/dL (3.2-4.8); Alkaline Phosphatase 99 U/L (46-116); Anion Gap 8 (5-15); BUN/Creatinine Ratio 11.1 (10.0-20.0); Bilirubin, Total 0.9 mg/dL (0.2-1.0); Calcium 9.0 mg/dL (8.7-10.4); Carbon Dioxide 27 mmol/L (20-31); Chloride 103 mmol/L (98-107); Glucose 100 mg/dL (74-106); Potassium 4.1 mmol/L (3.5-5.1); Sodium 138 mmol/L (136-145); Total Protein 6.5 g/dL (5.7-8.2)
[2025-09-25 06:27] LABS: Blood Urea Nitrogen 8 mg/dL (9-23)
[2025-09-25] MEDS: FOLIC ACID 1 MG in D5W 5% 50 ML INJ SCH (10:00)
[2025-09-25] MEDS ORDERED: THIAMINE 100mg/ml INJ (200mg/2ml VIAL) IV SCH (10:00)
[2025-09-25] MEDS: THIAMINE 100mg/ml INJ (200mg/2ml VIAL) IV SCH (10:27)
--- NOTE | 2025-09-25 12:43 | ECG ---
[facility] Test Date: 2025-09-24 Test Time: 13:58:15 Pat Name: NANCY FRIEDMAN Department: Room: 0222 Gender: M [employer]ing [employer] Operator: NATALIE : 1990 Requested By: HECTOR COOK Order Number: [id number] Reading MD: Jairo Small Measurements Intervals [place] Rate: 57 P: 54 MT: 123 QRS: 66 QRSD: 83 T: 57 QT: 434 QTc: 423 Interpretive Statements Sinus rhythm Left atrial enlargement Electronically Signed On 09-27-2025 16:13:50 PST by Jairo Small Please click the below link to view image of tracing.
[2025-09-25] MEDS ORDERED: fentaNYL CITRATE 100 MCG/2 ML VL ONE ×2 (13:45→14:38)
[2025-09-25] MEDS: ceFAZolin 2 GM/D5W50ml 50 ML IV ONE (13:58)
[2025-09-25] MEDS ORDERED: HYDROmorphone HCL 2 MG/ML VL/or syr ONE (14:24)
[2025-09-25] MEDS ORDERED: KETAMINE 50mg/ML 1ml syringe ONE (14:24)
[2025-09-25] MEDS ORDERED: MIDAZOLAM HCL 2MG/2ML 2ml VIAL (1mg/ml) ONE (14:32)
[2025-09-25] MEDS ORDERED: MEPERIDINE HCL (25 MG/ML) 1ML VIAL ONE (14:38)
--- NOTE | 2025-09-25 16:05 | DVHPNRES ---
Progress Note Date Seen: Sep 25, 2025 Resident Creating Document: HECTOR COOK RESIDENT Medical Necessity Reason Pt with a Central, PICC or Fol: No Subjective Review of Systems Patient is 35-year-old male who denies past medical history presented to [facility] ED with complaint of left leg pain. Patient reports that his slipped and fell on a wet tile floor at home earlier this evening with sustained injury. Patient was seen and evaluated in the ED, laboratory data shows WBC 17.1, platelets 416, sodium 140, potassium 3.9, BUN 7, creatinine 0.87, GFR 117, glucose 80, calcium 9.3, AST 47, ALT 59, alkaline phosphatase 117, vitamin-D 23.4. Blood alcohol level 139.6, Left femur x-ray- Acute enkm-wg-ubvsbwtibl displaced oblique fracture of the left distal femoral diaphysis.Extensive hardware fixation of the left proximal tibia. Hardware appears intact. Unzbqvau-di-wpzgxl arthritis of the left knee. CT Scan of the left lower extremity- Redemonstration of moderately displaced oblique fracture of the distal femoral diaphysis.Moderate lipohemarthrosis involving the knee joint. Ultrasound of the liver revealed- Apparent mild common bile duct dilatation measuring up to 7 mm. Correlate with laboratory analysis to assess for possible biliary obstruction. CXR- Diffuse reticular opacities may reflect atypical pneumonia versus mild pulmonary edema. PMH-none PSH- left tibial surgery Allergy- NKDA Personal History/ Social History- occasional alcoholic, denies substance abuse, lives with the family Patient was seen today at the bedside. Patient Cardiovascular- deny acute chest pain or shortness of breath or cough or palpitation Respiratory denies cough or short of breath or wheezing Gastrointestinal- denies any rectal bleeding, nausea or vomiting Musculoskeletal-denies acute joint swelling or tenderness or redness Neurological- denies acute dysarthria, dysphagia, change in vision Psychiatry- denies depression or SI or HI Skin- denies acute rash or purpura Patient was seen today at bedside Labs and chart reviewed Patient had surgical intervention today by orthopedic surgeon, S/P open reduction and intramedullary retrograde nail. Postoperative patient reported doing well, Patient is to start rivaroxaban 10 mg p.o. daily starting on tomorrow until 11/01/2025 for 35 days Objective vital signs Vital Sign Date Time Temp Pulse Resp B/P (MAP) Pulse Ox O2 Delivery O2 Flow Rate FiO2 09/25/25 10:26 72 20 138/94 09/25/25 09:00 97.9 99 97.9 09/25/25 08:00 Room Air* 0 21 Total Intake and Output 09/24/25 09/24/25 09/25/25 15:00 23:00 07:00 Intake Total 1150 ml 0 ml Balance 1150 ml 0 ml medications Current Medications Medications Dose Ordered Sig/Leighann Route Start Time Stop Time Status Last Admin Dose Admin Acetaminophen/ Hydrocodone Bitart 1 tab Q4HP PRN PO 09/24/25 02:15 09/25/25 04:11 1 TAB Ondansetron HCl 4 mg Q4HP PRN IV 09/24/25 02:15 Docusate Sodium 100 mg BIDPRN PRN PO 09/24/25 02:15 Enoxaparin Sodium 40 mg DAILY SC 09/24/25 10:00 Hold Acetaminophen 650 mg Q6HP PRN PO 09/24/25 02:15 Ceftriaxone Sodium 50 ml @ 100 mls/hr DAILY@09 IV 09/25/25 09:00 09/25/25 10:28 100 MLS/HR Dextrose/Sodium Chloride 1,000 ml @ 75 mls/hr [id number] IV 09/24/25 02:15 Hold 09/24/25 02:15 75 MLS/HR Nitroglycerin 0.4 mg Q5MINP PRN SL 09/24/25 02:45 Morphine Sulfate 2 mg Q30M PRN IV 09/24/25 02:45 Hydromorphone HCl 0.25 mg Q4HPRN PRN IV 09/24/25 09:45 09/25/25 10:26 0.25 MG Thiamine HCl 100 mg DAILY IV 09/25/25 10:00 09/25/25 10:27 100 MG Lorazepam 1 mg Q2HPRN PRN IV 09/24/25 16:30 Folic Acid 1 mg/ Dextrose 50.2 ml @ 200.8 mls/ hr DAILY INJ 09/25/25 10:00 Folic Acid 1 mg/ Magnesium Sulfate 8 meq/ Multivitamins 10 ml/Thiamine HCl 100 mg/Sodium Chloride 1,013.2 ml @ 126.247 mls/hr DAILY@1800 INJ 09/24/25 18:00 09/24/25 17:52 126.247 MLS/HR Examination General examination- awake, alert, oriented HEENT- PEERLA, no acute nasal discharge Cardiovascular- S1-S2 audible, rate and rhythm regular, no murmur Respiratory- CTAB, no wheeze or rhonchi Gastrointestinal-nontender, bowel sound+. Nondistended Musculoskeletal-no acute joint swelling or tenderness or redness Lower extremity- pain and tenderness above of the left knee Neurological- cranial nerves intact, no acute dysarthria or dysphagia Psychiatry- denies depression or SI or HI Skin- no acute rash or purpura laboratory and microbiology Laboratory Tests 09/25/25 05:30 Test 09/25/25 05:30 Range/Units Serum Glucose 100 74-106 mg/dL Microbiology Date/Time Source Procedure Growth Status 09/24/25 02:40 Blood Blood Culture - Preliminary NO GROWTH AFTER 24 HOURS OF INCUBATION. Resulted Problem List/Assessment/Plan Problem List/Assessment/Plan Assessment and plan # fracture left distal diaphysis of femur # status post fall -Left femur x-ray- Acute zesb-gb-pkhamvpsvv displaced oblique fracture of the left distal femoral diaphysis.Extensive hardware fixation of the left proximal tibia. Hardware appears intact. Mrvxdwco-bu-sdyhoi arthritis of the left knee. -CT Scan of the left lower extremity- Redemonstration of moderately displaced oblique fracture of the distal femoral diaphysis.Moderate lipohemarthrosis involving the knee joint. ADP palpable, intractable touch sensation in the left foot Status post orthopedic consult Patient had surgical intervention today by orthopedic surgeon, S/P open reduction and intramedullary retrograde nail. Postoperative patient reported doing well, Patient is to start rivaroxaban 10 mg p.o. daily starting on tomorrow until 11/01/2025 for 35 days -monitor vitals # transaminitis -Ultrasound of the liver revealed- Apparent mild common bile duct dilatation measuring up to 7 mm. -monitor liver function test # history of alcoholism -counseled about the effect of alcoholism on health # toxic encephalopathy # alcohol intoxication -serum alcohol level 139.6 -patient on CIWA protocol -ordered thiamine and folic acid supplement Goals of care, Code status full code ; discussed with >15 minutes PUD prophylaxis: Pantoprazole DVT prophylaxis: Lovenox Plan discussed with Dr. Bolivar , nursing staff, Total time spent on patient evaluation, chart review, assessment and plan, discussion discussion >35 minutes Plan discussed with: Patient, Other (RN) My Orders My Orders Orders - HECTOR COOK Procedure Category Date Status Time Thiamine Inj PHA 09/25/25 In Process 10:00 Lorazepam 2mg/Ml Inj PHA 09/24/25 In Process (Ativan Inj) 16:30 Etoh Withdrawal JARVIS 09/24/25 In Process Assessment 16:25 Etoh Withdrawal JARVIS 09/24/25 In Process Assessment 16:25 Folic Acid PHA 09/25/25 In Process 10:00 Acute Hepatitis Panel LAB 09/24/25 In Process 16:27 Folic Acid... PHA 09/24/25 In Process 18:00 Visit Coding STANDARD RES Billing Provider: TALA CARDONA MD Date of Service if different f: Sep 25, 2025 Common Visit Codes: [id number] INP/OBS CARE(HIGH) HECTOR COOK RESIDENT Sep 25, 2025 16:04
[2025-09-25] MEDS ORDERED: ACETAMINOPHEN 325 MG TAB PO PRN (16:30)
[2025-09-25] MEDS: LACTATED RINGER'S 1,000 ML IV SCH (16:30)
[2025-09-25] MEDS: ceFAZolin 1GM/50ML 50 ML IV SCH (16:30)
[2025-09-25] MEDS: ACETAMINOPHEN IV 1000 MG/100ML (10MG/ML) IV ONE (16:30)
[2025-09-25] MEDS ORDERED: ONDANSETRON HCL 4 MG/2 ML VIAL IV PRN ×2 (16:30)
[2025-09-25] MEDS ORDERED: BISACODYL 5 MG EC TAB PO PRN (16:30)
[2025-09-25] MEDS ORDERED: HYDROmorphone HCL 2 MG/ML VL/or syr IV PRN (16:30)
[2025-09-25] MEDS ORDERED: HYDROcodone-ACET 5/325MG TAB PO PRN (16:30)
[2025-09-25] MEDS: BUPIVACAINE HCL 50 ML ONE (16:45)
--- NOTE | 2025-09-25 16:53 | DVH ---
C-ARM FLUOROSCOPY: PROCEDURE: Left femur ORIF FLUOROSCOPY TIME: 215 seconds Air Kerma: 9.2 mgy FINDINGS: Spot intraoperative C arm radiographs demonstrating left femur ORIF. IMPRESSION: Please refer to surgical report for detailed findings.
--- NOTE | 2025-09-25 17:30 | DVHOP ---
DATE OF SURGERY: 09/25/2025 PREOPERATIVE DIAGNOSIS: Left distal femur fracture. POSTOPERATIVE DIAGNOSIS: Left distal femur fracture. PROCEDURE PERFORMED: Left distal femur fracture, open reduction and intramedullary retrograde nail. AWNING HANGER: Candida Brito PA-C. BLOOD LOSS: 100 mL. COMPLICATIONS: None. IMPLANTS USED: [employer] natural nail 14 mm in diameter with distal 3 screws and proximal 2 screws. INDICATION FOR PROCEDURE: The patient is a 35-year-old gentleman who presented to the emergency room with a history of fall. He had a history of substance abuse. Clinical and radiological evaluation demonstrated distal femur supracondylar spiral fracture. Nonoperative and operative management options were discussed. Surgery in the form of closed versus open reduction and intramedullary nailing versus bleeding was discussed with him. Benefits, risks, benefits, and alternatives were discussed. Specific complications of the surgery such as neurovascular injury, infection, arthrofibrosis, loss of limb or life were discussed. He decided to proceed with a surgical option. It was mentioned that the patient had preoperative proximal tibia hardware. The patient was aware of this as he had an open reduction internal fixation around 2 years ago for a proximal tibia fracture. 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 He had developed stiffness after the previous surgery. It was mentioned to the patient that he may continue to have significant stiffness and limitation of range of motion, which might get worse after the surgery as well. Leg length discrepancy, malunion, nonunion, malalignment, internal or external rotation of the limb was also discussed in detail. The patient had arthroscopy of the knee to have better range of motion, but as per the patient, his range of motion was only from 30 to 70 degrees. It was mentioned that this would make the actual procedure more difficult because of the manipulation needed and prognosis was guarded. The patient understood. PROCEDURE IN DETAIL: The patient was identified in the preoperative holding area and the surgical site was marked. The consent was verified. He was brought into the operating room and placed supine on the operating table. General anesthesia was administered. Intravenous antibiotics given. He was placed on the Jose Alberto table. The extremity was prepped and draped in the usual sterile manner. Time was called out to confirm the identity of the patient, the nature of surgery, the site of surgery, the availability of implants, x-rays, and allergies to medications. The leg was placed on a triangle. AP and lateral views were obtained to see if the reduction could be obtained. This was found to be satisfactory and there was no need for external fixator or retraction device. However, there was a long spike that was not reduced and there was significant valgus. I decided to make a small incision on the lateral aspect. The fracture site was exposed. The IT band was incised for this. The hematoma was evacuated. The fracture line was felt. I used a colinear clamp for accurate reduction. Minimal periosteal stripping was done. Next, a parapatellar arthrotomy was done. A skin incision was made over the medial aspect of the patella down to the tibial tubercle. The skin and the subcutaneous tissue was dissected. The deep fascia was incised. The patellar tendon was identified and an incision was made medial to it on the retinaculum. The tendon was retracted laterally and a guide pin was inserted in the intercondylar notch. Care was taken to be anterior to the origin of the ACL. AP and lateral views were obtained on x-rays to confirm the trajectory. Guide pin was then inserted. Next, the supracondylar reamer was inserted to dilate the proximal portion. Next, the guide pin was removed and with reduction maintained, a ball-tipped guidewire was inserted all the way proximal. Next, sequential reamers were used starting at from 11 to 14 until a cortical chatter was felt. Next, the nail was inserted, excellent fixation was noted. Reduction was, in fact, better with the nail. Three distal screws were inserted, two were bicortical, the third was unicortical. Excellent fixation was noted with all 3 screws with good bone quality. Two proximal screws were inserted, these were bicortical as well. A jig was used for this purpose. The proximal screw had to be free-handed as it did not follow the jig. An incision was made over the lateral aspect of the femur. The skin and subcutaneous tissue were dissected. IT band was incised and the screws were inserted. Care was taken to take multiple C-arm images to ensure a good trajectory of the nail and the screws. Irrigation was given. Bone graft was inserted, DBM at the fracture site due to the long spiral nature and the fact that we had to do an open reduction. The IT band was closed with #2 Ethibond. The skin incision was closed with 2-0 Vicryl and thompson. Next, sterile dressing was applied. The knee was placed in a knee immobilizer. DISPOSITION: Good. The patient was extubated and taken to the recovery without any complication. PLAN: To remain toe-touch weightbearing. Range of motion from 0 to 70 degrees. We will start anticoagulation tomorrow. MD SHANIQUE Wise/RAY TID: [id number] RECEIPT: [id number] [facility]
--- NOTE | 2025-09-25 19:14 | DVH ---
CLINICAL INDICATION: Post op evaluation TECHNIQUE: 4 radiographic views of the left femur were obtained. COMPARISON: XY L FEMUR XRAY on DOS: 09/25/25, XY L FEMUR XRAY on DOS: 09/24/25 FINDINGS/IMPRESSION: 4 images placement of a intramedullary ellis into the distal 3rd of the femur on the left with 3 internal fixation screws distally onto internal rotation screws proximally.
[2025-09-25] MEDS: HYDROcodone-ACET 10/325MG TAB PO PRN (22:20)
[2025-09-25] MEDS: DOCUSATE SOD 100 MG CAP PO SCH (22:21)
[2025-09-26] VITALS (7 sets, daily range): BP systolic 113–133; BP diastolic 66–83; PULSE 69–82; RESP 18–19; TEMP 97.8–98.2; O2SAT 97–99
[2025-09-26] MEDS: FOLIC ACID 1 MG, MAGNESIUM SULF SDV 50% 8 MEQ, MULTIPLE VITAMIN 10 ML, THIAMINE INJ 100... INJ ONE
[2025-09-26 06:50] LABS: Hematocrit 35.8 % (41.0-53.0); Hemoglobin 12.0 g/dL (13.5-17.5); Mean Corpuscular Hemoglobin 30.1 pg (28.0-32.0); Mean Corpuscular Volume 89.6 fL (80.0-100.0); Nucleated Red Blood Cells % 0.0 %
[2025-09-26 07:11] LABS: Alanine Aminotransferase 29 U/L (7-40); Albumin 4.0 g/dL (3.2-4.8); Alkaline Phosphatase 86 U/L (46-116); Anion Gap 9 (5-15); BUN/Creatinine Ratio 5.5 (10.0-20.0); Calcium 8.9 mg/dL (8.7-10.4); Carbon Dioxide 29 mmol/L (20-31); Chloride 102 mmol/L (98-107); Magnesium 2.0 mg/dL (1.6-2.6); Potassium 4.0 mmol/L (3.5-5.1); Sodium 140 mmol/L (136-145); Total Protein 6.4 g/dL (5.7-8.2)
[2025-09-26 07:12] LABS: Bilirubin, Total 0.4 mg/dL (0.2-1.0); Blood Urea Nitrogen 5 mg/dL (9-23); Glucose 110 mg/dL (74-106)
[2025-09-26] MEDS: HYDROmorphone HCL 2 MG/ML VL/or syr IV PRN (09:24)
[2025-09-26 10:27] LABS: Hepatitis B Surface Antigen Negative (Negative)
[2025-09-26 11:35] LABS: Hepatitis C Antibody Negative (Negative)
--- NOTE | 2025-09-26 11:58 | DVHSR ---
APPROVED REPORT EXAM: Two-dimensional and M-mode echocardiogram with Doppler and color Doppler. Blood Pressure: 134/76 mmHg INDICATION ?chf/ cardiomyopathy RISK FACTORS Height: 6'0, Weight: 181 DIMENSIONS LVDd 4.3 (3.8-5.7cm) LA (2D) 3.1 (1.9-4.0cm) Aortic Root 3.3 (2.0-3.7cm) LVDs 2.9 (2.5-4.0cm) LA (MM) (1.9-4.0cm) Aortic Cusp Exc 1.9 (1.5-2.0cm) EF (%) 60.0 (55-70%) Rt. Atrium 3.8 (1.9-4.0cm) Asc. Aorta 2.7 cm IVSd 1.1 (0.7-1.1cm) RV (D) 3.6 (1.8-2.4cm) PWd 0.9 (0.7-1.1cm) Mitral Valve Mitral Mitral Stenosis E wave 0.72m/s MV Mean GR. mmHg A wave 0.58m/s MV Peak GR. 76mmHg E/A ratio 1.2 2D MVA cm2 DECEL Time 192ms PRESS 1/2 Time ms Aortic Valve Aortic Valve Aortic Stenosis V1 0.97m/s AO Mean GR. 4mmHg V2 1.23m/s AO Peak GR. 6mmHg LVOT Diameter 2.2 (1.8-2.4cm) Doppler KAMILA 3.00cm2 Pulmonic Valve V2 1.01m/s Conclusion Technically good study. Sinus rhythm. Normal chamber sizes. Normal valves. Left ventricular function is preserved at 60% with normal RV function. Dopplers normal. No pericardial effusion masses or vegetations.
--- NOTE | 2025-09-26 16:39 | DVHPN2 ---
Progress Note Progress Note Ortho Surgeon: Dr. Parks Procedure: Left distal femur open reduction and internal fixation with retrograde intramedullary nail Diagnosis: Left distal femur fracture Post-Operative Day: 1 SUBJECTIVE The patient was seen and examined today at bedside. He is status post left distal femur open reduction and internal fixation with retrograde intramedullary nail performed by Dr. Parks. The patient reports doing well overall. Pain is well controlled. He denies chest pain, shortness of breath, fevers, chills, numbness, tingling, or new weakness. No acute complaints at this time. Patient is tolerating post-operative course without distress. OBJECTIVE General: Patient is awake, alert, and in no acute distress. Vital Signs: Reviewed and stable at time of evaluation. Left Lower Extremity: Post-operative knee brace in place, set from 070 degrees. Surgical dressing clean, dry, and intact. No excessive swelling, erythema, or drainage noted. Compartments soft and compressible. Distal pulses palpable. Sensation intact to light touch. Motor function intact distally. Grossly neurovascularly intact. Physical Therapy: Patient has initiated physical therapy. ASSESSMENT Left distal femur fracture, status post open reduction and internal fixation with retrograde intramedullary nail stable post-operative course. PLAN Continue post-operative knee brace locked at 070 degrees. Weight-bearing status: Toe-touch weight-bearing to the left lower extremity until next follow-up. Physical Therapy: Continue per protocol. Anticoagulation: May initiate today per hospitalist team recommendations. Pain Control: Continue current pain management regimen per hospitalist Follow-Up: Orthopedic clinic follow-up in 2 weeks post-discharge. Precautions: Patient was counseled on return precautions, including worsening pain, numbness, tingling, increased swelling, fevers, wound drainage, or any other concerns. Plan discussed with: Patient, Other (bedside nurse) Visit Coding Surgery Date of Service if different f: Sep 26, 2025 Billing Provider: YOUNG RODRIGEZ Surgery Visit Codes: 67414 - INP CONSULT <55 MIN YOUNG RODRIGEZ Sep 26, 2025 16:39
[2025-09-26] MEDS ORDERED: ACE650RS PO (16:56)
[2025-09-26] MEDS ORDERED: IBUP-1453 PO (16:56)
[2025-09-26] MEDS ORDERED: PANT40T PO (16:57)
--- NOTE | 2025-09-26 18:36 | DVHDSRES ---
Discharge Summary Date of Admission Resident Creating Document: HECTOR COOK RESIDENT Sep 24, 2025 at 02:32 Date of Discharge: Sep 26, 2025 Admitting Diagnosis Status post fall, left distal femur diaphyseal fracture Alcohol intoxication Labs/Diagnostic Data: Laboratory Results Test 09/26/25 06:33 09/25/25 05:30 09/24/25 19:57 09/24/25 18:50 White Blood Count 12.2 10^3/uL (4.4-10.8) Red Blood Count 3.99 10^6/uL (4.5-5.90) Hemoglobin 12.0 g/dL (13.5-17.5) Hematocrit 35.8 % (41.0-53.0) Mean Corpuscular Volume 89.6 fL (80.0-100.0) Mean Corpuscular Hemoglobin 30.1 pg (28.0-32.0) Mean Corpuscular Hemoglobin Concent 33.6 g/dL (32.0-36.0) Red Cell Distribution Width 12.5 % (11.8-14.3) Platelet Count 322 10^3/uL (140-450) Mean Platelet Volume 7.4 fL (6.9-10.8) Neutrophils (%) (Auto) 83.4 % (37.0-80.0) Lymphocytes (%) (Auto) 10.4 % (10.0-50.0) Monocytes (%) (Auto) 6.0 % (0.0-12.0) Eosinophils (%) (Auto) 0.0 % (0.0-7.0) Basophils (%) (Auto) 0.2 % (0.0-2.0) Neutrophils # (Auto) 10.2 10 ^3/uL (1.6-8.6) Lymphocytes # (Auto) 1.3 10 ^3/uL (0.4-5.4) Monocytes # (Auto) 0.7 10 ^3/uL (0-1.3) Eosinophils # (Auto) 0 10 ^3/uL (0-0.8) Basophils # (Auto) 0 10 ^3/uL (0-0.2) Nucleated Red Blood Cells 0.0 % Sodium Level 140 mmol/L (136-145) Potassium Level 4.0 mmol/L (3.5-5.1) Chloride Level 102 mmol/L (98-107) Carbon Dioxide Level 29 mmol/L (20-31) Anion Gap 9 (5-15) Blood Urea Nitrogen 5 mg/dL (9-23) Creatinine 0.91 mg/dL (0.700-1.30) Glomerular Filtration Rate Calc 114 mL/min (>90) BUN/Creatinine Ratio 5.5 (10.0-20.0) Serum Glucose 110 mg/dL (74-106) Calcium Level 8.9 mg/dL (8.7-10.4) Magnesium Level 2.0 mg/dL (1.6-2.6) Total Bilirubin 0.4 mg/dL (0.2-1.0) Aspartate Amino Transferase (AST) 21 U/L (13-40) Alanine Aminotransferase (ALT) 29 U/L (7-40) Alkaline Phosphatase 86 U/L (46-116) Total Protein 6.4 g/dL (5.7-8.2) Albumin 4.0 g/dL (3.2-4.8) B-Type Natriuretic Peptide 56.08 pg/mL (0-100) Urine Color Yellow (Yellow) Urine Clarity Clear (Clear) Urine pH 6.0 (5.0-9.0) Urine Specific Rhame 1.028 (1.001-1.035) Urine Protein Trace (Negative) Urine Ketones 2+ (Negative) Urine Blood Negative /uL (Negative) Urine Nitrite Negative (Negative) Urine Bilirubin Negative (Negative) Urine Urobilinogen Normal mg/dL (Negative) Urine Leukocyte Esterase Negative /uL (Negative) Urine RBC <1 /hpf (0 - 3) Urine Microscopic WBC 1 /HPF (0-3) Urine Squamous Epithelial Cells None seen /hpf (<5) Urine Bacteria None seen /hpf (None Seen) Urine Mucus Few (None Seen) Urine Glucose Normal mg/dL (Normal) Urine Opiates Screen Pos (NEGATIVE) Urine Fentanyl Screen Pos (NEGATIVE) Urine Barbiturates Screen Neg (NEGATIVE) Urine Phencyclidine Screen Neg (NEGATIVE) Urine Amphetamines Screen Neg (NEGATIVE) Urine Benzodiazepines Screen Neg (NEGATIVE) Urine Cocaine Screen Pos (NEGATIVE) Urine Cannabinoids Screen Neg (NEGATIVE) Ammonia 28 umol/L (11-32) Test 09/24/25 02:30 09/24/25 01:00 Hemoglobin A1c 5.1 % A1C (<5.7) Vitamin B12 Level 343 pg/mL (211-911) Vitamin D 25-Hydroxy 23.4 ng/mL (30.0-100) Folic Acid 18.35 ng/mL (>5.38) Thyroid Stimulating Hormone (TSH) 1.06 uIU/mL (0.55-4.78) Plasma/Serum Blood Alcohol 139.6 mg/dL (<10) Hepatitis A IgM Antibody Negative Hepatitis B Surface Antigen Negative (Negative) Hepatitis B Core IgM Antibody Negative (Negative) Hepatitis C Antibody Negative (Negative) Prothrombin Time 10.8 sec (9.3-11.8) Prothrombin Time INR 1.02 (0.9-1.15) Activated Partial Thromboplast Time 26.7 SEC (24.5-34.5) Other Laboratory Tests 09/26/25 06:33 Brief Hx & Hospital Course: Patient is 35-year-old male who denies past medical history presented to [facility] ED with complaint of left leg pain. Patient reports that his slipped and fell on a wet tile floor at home earlier this evening with sustained injury. Patient was seen and evaluated in the ED, laboratory data shows WBC 17.1, platelets 416, sodium 140, potassium 3.9, BUN 7, creatinine 0.87, GFR 117, glucose 80, calcium 9.3, AST 47, ALT 59, alkaline phosphatase 117, vitamin-D 23.4. Blood alcohol level 139.6, Left femur x-ray- Acute hqgp-xy-ojcssqxcxa displaced oblique fracture of the left distal femoral diaphysis.Extensive hardware fixation of the left proximal tibia. Hardware appears intact. Gfvvkxaw-zz-lypymp arthritis of the left knee. CT Scan of the left lower extremity- Redemonstration of moderately displaced oblique fracture of the distal femoral diaphysis.Moderate lipohemarthrosis involving the knee joint. Ultrasound of the liver revealed- Apparent mild common bile duct dilatation measuring up to 7 mm. Correlate with laboratory analysis to assess for possible biliary obstruction. CXR- Diffuse reticular opacities may reflect atypical pneumonia versus mild pulmonary edema. Hospital course-patient was seen by orthopedic surgeon,Patient had open reduction and intramedullary retrograde nail. Postoperative patient reported doing well, Patient was start rivaroxaban 10 mg p.o. daily starting on tomorrow until 11/01/2025 for 35 days # fracture left distal diaphysis of femur #S/P open reduction and intramedullary retrograde nail. # status post fall # transaminitis # history of alcoholism # toxic encephalopathy # alcohol intoxication # substance abuse cocaine Plan -continue rivaroxaban 10 mg p.o. daily for 35 days -continue folic acid and thiamine as prescribed -continue pantoprazole as prescribed -pain medication as prescribed Follow up at [facility]/PCP/orthopedic surgeon Please get a referral from your PCP for outpatient physical therapy Continue post-operative knee brace locked at 070 degrees. Weight-bearing status: Toe-touch weight-bearing to the left lower extremity until next follow-up. Orthopedic clinic follow-up in 2 weeks post-discharge. Precautions: Patient was counseled on return precautions, including worsening pain, numbness, tingling, increased swelling, fevers, wound drainage, or any other concerns. Counseled about the effect of alcoholism and substance abuse on health Plan of care discussed with Dr. Bolivar Consults/Reason for consult [place] [address] Ph: [phone] DIAGNOSTIC IMAGING Diagnostic Imaging Report : [id number] Signed PATIENT: NANCY FRIEDMAN ACCT: [id number] UNIT: [id number] : 1990 LOC: ER ROOM / BED: / AGE / SEX: 35 / M ADM STATUS: REG ER SERVICE 4381 ORDERING PHYSICIAN: SAPPHIRE ENCINAS MD PROCEDURE(s): LFEM - L FEMUR XRAY REASON: pain s/p fall ORDER NUMBER(s): [id number], ACCESSION NUMBER(s): [id number] EXAM: XY L TIB FIB XRAY, XY L FEMUR XRAY REASON FOR EXAM: Pain s/p fall. TECHNIQUE: Four views of the left femur and two views of the left tibia/fibula. COMPARISON: None available. FINDINGS: Acute vfwx-ve-gfariyutsr displaced oblique fracture of the distal femoral diaphysis with approximately 26 mm displacement. No acute fracture or dislocation of the tibia or fibula. Extensive hardware fixation of the proximal tibia. Hardware appears intact. Rjbanzhu-ir-kajpmg arthritis of the knee with greater than 50% joint space narrowing in the lateral compartment and less than 50% joint space narrowing in the medial compartment in addition to mild tricompartmental osteophytosis. Questionable mild demineralization of the osseous structures. Soft tissues are unremarkable. IMPRESSION: 1. Acute uyul-lo-chfofawoby displaced oblique fracture of the left distal femoral diaphysis. 2. No acute fracture or dislocation of the left tibia or fibula. 3. Extensive hardware fixation of the left proximal tibia. Hardware appears intact. 4. Oumqcmzo-od-aezedg arthritis of the left knee. ATED BY: JAMEY LEMONS MD DICTATED DATE/TIME: 09/24/25117 SIGNED BY: JAMEY LEMONS MD SIGNED DATE/TIME: 09/24/25117 CC: [place] [address] Ph: [phone] DIAGNOSTIC IMAGING Diagnostic Imaging Report : [id number] Signed PATIENT: NANCY FRIEDMAN ACCT: [id number] UNIT: [id number] : 1990 LOC: ER ROOM / BED: / AGE / SEX: 35 / M ADM STATUS: REG ER SERVICE 8770 ORDERING PHYSICIAN: SAPPHIRE ENCINAS MD PROCEDURE(s): LTBFB - L TIB FIB XRAY REASON: pain s/p fall ORDER NUMBER(s): [id number], ACCESSION NUMBER(s): [id number] EXAM: XY L TIB FIB XRAY, XY L FEMUR XRAY REASON FOR EXAM: Pain s/p fall. TECHNIQUE: Four views of the left femur and two views of the left tibia/fibula. COMPARISON: None available. FINDINGS: Acute rfuc-sv-khgqmnmcya displaced oblique fracture of the distal femoral diaphysis with approximately 26 mm displacement. No acute fracture or dislocation of the tibia or fibula. Extensive hardware fixation of the proximal tibia. Hardware appears intact. Vinwcxak-ep-bxonus arthritis of the knee with greater than 50% joint space narrowing in the lateral compartment and less than 50% joint space narrowing in the medial compartment in addition to mild tricompartmental osteophytosis. Questionable mild demineralization of the osseous structures. Soft tissues are unremarkable. IMPRESSION: 1. Acute slgv-og-yghshckota displaced oblique fracture of the left distal femoral diaphysis. 2. No acute fracture or dislocation of the left tibia or fibula. 3. Extensive hardware fixation of the left proximal tibia. Hardware appears intact. 4. Bepshiev-ha-tbldtm arthritis of the left knee. ATED BY: JAMEY LEMONS MD DICTATED DATE/TIME: 09/24/25117 SIGNED BY: JAMEY LEMONS MD SIGNED DATE/TIME: 09/24/25117 CC: [place] [address] Ph: [phone] DIAGNOSTIC IMAGING Diagnostic Imaging Report : [id number] Signed PATIENT: NANCY FRIEDMAN ACCT: [id number] UNIT: [id number] : 1990 LOC: TELE-CENTR ROOM / BED: [facility] / B AGE / SEX: 35 / M ADM STATUS: ADM IN SERVICE 2 ORDERING PHYSICIAN: HECTOR COOK RESIDENT PROCEDURE(s): LIVUS - LIVER REASON: ?HEPATOSTEATOSIS ORDER NUMBER(s): [id number], ACCESSION NUMBER(s): [id number] US limited, RUQ INDICATION: HEPATOSTEATOSIS COMPARISON: None TECHNIQUE: Limited ultrasound of the abdomen was performed and reviewed. FINDINGS: The pancreas is partially obscured by bowel gas. Unremarkable homogeneous liver echogenicity. Limited evaluation of the gallbladder as the patient was unable to turn. No evidence of cholelithiasis or gallbladder wall thickening. Negative sonographic Ley's sign. The common bile duct measures 7 mm. The right kidney is 10.5 cm. No evidence for hydronephrosis. IMPRESSION: Apparent mild common bile duct dilatation measuring up to 7 mm. Correlate with laboratory analysis to assess for possible biliary obstruction. ATED BY: JAMEY LEMONS MD DICTATED DATE/TIME: 09/24/25 1007 SIGNED BY: JAMEY LEMONS MD SIGNED DATE/TIME: 09/24/25 1007 CC: [place] [id number] Ph: [phone] DIAGNOSTIC IMAGING Diagnostic Imaging Report : [id number] Signed PATIENT: NANCY FRIEDMAN ACCT: [id number] UNIT: [id number] : 1990 LOC: TELE-CENTR ROOM / BED: [facility] / B AGE / SEX: 35 / M ADM STATUS: ADM IN SERVICE 0853 ORDERING PHYSICIAN: HECTOR COOK PROCEDURE(s): CXR1 - CHEST XRAY 1 VIEW REASON: ?PNA ORDER NUMBER(s): [id number], ACCESSION NUMBER(s): [id number] CHEST RADIOGRAPH INDICATION: PNA TECHNIQUE: Single frontal view of the chest was obtained COMPARISON: None FINDINGS: Lines and Tubes: None Lungs: No focal consolidation. Diffuse reticular opacities may reflect atypical pneumonia versus mild pulmonary edema. Pleura: No effusion. No pneumothorax. Cardiomediastinal contours: Unremarkable Bones: No acute osseous abnormality. IMPRESSION: 1. Diffuse reticular opacities may reflect atypical pneumonia versus mild pulmonary edema. ATED BY: SABA ALSTON MD DICTATED DATE/TIME: 09/24/25 132 SIGNED BY: SABA ALSTON MD SIGNED DATE/TIME: 09/24/25 132 CC: [place] [address] Ph: [phone] DIAGNOSTIC IMAGING Diagnostic Imaging Report : [id number] Signed PATIENT: NANCY FRIEDMAN ACCT: [id number] UNIT: [id number] : 1990 [facility]GE / SEX: 35 / M ADM STATUS: ADM IN SERVICE 1022 ORDERING PHYSICIAN: HECTOR COOK PROCEDURE(s): LFMCT - CT L FEMUR WO CONTRAST REASON: FRACTURE LEFT FEMUR ORDER NUMBER(s): [id number], ACCESSION NUMBER(s): [id number] INDICATION: FRACTURE LEFT FEMUR COMPARISON: XY L FEMUR XRAY on DOS: 09/24/25, XY L TIB FIB XRAY on DOS: 09/24/25 TECHNIQUE: CT of the left femur was performed without contrast. Volume transverse images were obtained and reconstructed in multiple planes using bone and soft tissue algorithms. Radiation Dose Information: CT Dose: CTDI volume is 16.19 mGy. Dose-length product is 7.3 mGy*cm FINDINGS: Moderate lipohemarthrosis involving the knee joint. Extensive surgical hardware is partially imaged in the proximal tibia. Redemonstration of moderately displaced oblique fracture of the distal femoral diaphysis. IMPRESSION: Redemonstration of moderately displaced oblique fracture of the distal femoral diaphysis. Moderate lipohemarthrosis involving the knee joint. All CT scans at this medical facility are performed using dose modulation techniques as appropriate to a performed exam including the following: Automated exposure control was utilized; adjustment of the MA and/or KV according to patient size; and use of iterative reconstruction technique. ATED BY: JAMEY LEMONS MD DICTATED DATE/TIME: 09/24/251418 SIGNED BY: JAMEY LEMONS MD SIGNED DATE/TIME: 09/24/251418 CC: [place] [address] Ph: [phone] DIAGNOSTIC IMAGING Diagnostic Imaging Report : [id number] Signed PATIENT: NANCY FRIEDMAN ACCT: [id number] UNIT: [id number] : 1990 LOC: [facility] ROOM / BED: [address] [place] [address] AGE / SEX: 35 / M ADM STATUS: ADM IN SERVICE 1604 ORDERING PHYSICIAN: XIOMARA PARKS MD PROCEDURE(s): LFEM - L FEMUR XRAY REASON: ORIF LT FEMUR ORDER NUMBER(s): [id number], ACCESSION NUMBER(s): [id number] C-ARM FLUOROSCOPY: PROCEDURE: Left femur ORIF FLUOROSCOPY TIME: 215 seconds Air Kerma: 9.2 mgy FINDINGS: Spot intraoperative C arm radiographs demonstrating left femur ORIF. IMPRESSION: Please refer to surgical report for detailed findings. ATED BY: JAMEY LEMONS MD DICTATED DATE/TIME: 09/25/251649 SIGNED BY: JAMEY LEMONS MD SIGNED DATE/TIME: 09/25/251649 CC: [place] [address] Ph: [phone] DIAGNOSTIC IMAGING Diagnostic Imaging Report : [id number] Signed PATIENT: NANCY FRIEDMAN ACCT: [id number] UNIT: [id number] : 1990 LOC: TELE-CENTR ROOM / BED: [facility] / AGE / SEX: 35 / M ADM STATUS: ADM IN SERVICE 1606 ORDERING PHYSICIAN: XIOMARA PARKS MD PROCEDURE(s): CARM1 - C ARM FLUOROSCOPY UP TO 60MIN REASON: ORIF LT FEMUR ORDER NUMBER(s): [id number], ACCESSION NUMBER(s): [id number] C-ARM FLUOROSCOPY: PROCEDURE: Left femur ORIF FLUOROSCOPY TIME: 215 seconds Air Kerma: 9.2 mgy FINDINGS: Spot intraoperative C arm radiographs demonstrating left femur ORIF. IMPRESSION: Please refer to surgical report for detailed findings. ATED BY: JAMEY LEMONS MD DICTATED DATE/TIME: 09/25/25 165 SIGNED BY: JAMEY LEMONS MD SIGNED DATE/TIME: 09/25/25 165 CC: [place] [address] Ph: [phone] DIAGNOSTIC IMAGING Diagnostic Imaging Report : [id number] Signed PATIENT: NANCY FRIEDMAN ACCT: [id number] UNIT: [id number] : 1990 LOC: TELE-CENTR ROOM / BED: [address] [place] [address] AGE / SEX: 35 / M ADM STATUS: ADM IN SERVICE 1635 ORDERING PHYSICIAN: CANDIDA RUGGIERO PROCEDURE(s): LFEM - L FEMUR XRAY REASON: Post op evaluation ORDER NUMBER(s): [id number], ACCESSION NUMBER(s): [id number] CLINICAL INDICATION: Post op evaluation TECHNIQUE: 4 radiographic views of the left femur were obtained. COMPARISON: XY L FEMUR XRAY on DOS: 09/25/25, XY L FEMUR XRAY on DOS: 09/24/25 FINDINGS/IMPRESSION: 4 images placement of a intramedullary ellis into the distal 3rd of the femur on the left with 3 internal fixation screws distally onto internal rotation screws proximally. ATED BY: FLOWER WINTERS Jr., DO DICTATED DATE/TIME: 09/25/251910 SIGNED BY: FLOWER WINTERS Jr., SIGNED DATE/TIME: 09/25/251910 CC: Operations or Procedures Patient: NANCY FRIEDMAN Acct: [id number] : 1990 Loc: [facility] Age/Sex: 35/M Room: [facility] / Bed: B Attending Phy: HECTOR COOK RESIDENT DATE OF SURGERY: 09/25/2025 PREOPERATIVE DIAGNOSIS: Left distal femur fracture. POSTOPERATIVE DIAGNOSIS: Left distal femur fracture. PROCEDURE PERFORMED: Left distal femur fracture, open reduction and intramedullary retrograde nail. REGIONAL TRANSFER LIAISON: Candida Ruggiero PA-C. BLOOD LOSS: 100 mL. COMPLICATIONS: None. IMPLANTS USED: [employer] natural nail 14 mm in diameter with distal 3 screws and proximal 2 screws. INDICATION FOR PROCEDURE: The patient is a 35-year-old gentleman who presented to the emergency room with a history of fall. He had a history of substance abuse. Clinical and radiological evaluation demonstrated distal femur supracondylar spiral fracture. Nonoperative and operative management options were discussed. Surgery in the form of closed versus open reduction and intramedullary nailing versus bleeding was discussed with him. Benefits, risks, benefits, and alternatives were discussed. Specific complications of the surgery such as neurovascular injury, infection, arthrofibrosis, loss of limb or life were discussed. He decided to proceed with a surgical option. It was mentioned that the patient had preoperative proximal tibia hardware. The patient was aware of this as he had an open reduction internal fixation around 2 years ago for a proximal tibia fracture. 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 He had developed stiffness after the previous surgery. It was mentioned to the patient that he may continue to have significant stiffness and limitation of range of motion, which might get worse after the surgery as well. Leg length discrepancy, malunion, nonunion, malalignment, internal or external rotation of the limb was also discussed in detail. The patient had arthroscopy of the knee to have better range of motion, but as per the patient, his range of motion was only from 30 to 70 degrees. It was mentioned that this would make the actual procedure more difficult because of the manipulation needed and prognosis was guarded. The patient understood. PROCEDURE IN DETAIL: The patient was identified in the preoperative holding area and the surgical site was marked. The consent was verified. He was brought into the operating room and placed supine on the operating table. General anesthesia was administered. Intravenous antibiotics given. He was placed on the Jose Alberto table. The extremity was prepped and draped in the usual sterile manner. Time was called out to confirm the identity of the patient, the nature of surgery, the site of surgery, the availability of implants, x-rays, and allergies to medications. The leg was placed on a triangle. AP and lateral views were obtained to see if the reduction could be obtained. This was found to be satisfactory and there was no need for external fixator or retraction device. However, there was a long spike that was not reduced and there was significant valgus. I decided to make a small incision on the lateral aspect. The fracture site was exposed. The IT band was incised for this. The hematoma was evacuated. The fracture line was felt. I used a colinear clamp for accurate reduction. Minimal periosteal stripping was done. Next, a parapatellar arthrotomy was done. A skin incision was made over the medial aspect of the patella down to the tibial tubercle. The skin and the subcutaneous tissue was dissected. The deep fascia was incised. The patellar tendon was identified and an incision was made medial to it on the retinaculum. The tendon was retracted laterally and a guide pin was inserted in the intercondylar notch. Care was taken to be anterior to the origin of the ACL. AP and lateral views were obtained on x-rays to confirm the trajectory. Guide pin was then inserted. Next, the supracondylar reamer was inserted to dilate the proximal portion. Next, the guide pin was removed and with reduction maintained, a ball-tipped guidewire was inserted all the way proximal. Next, sequential reamers were used starting at from 11 to 14 until a cortical chatter was felt. Next, the nail was inserted, excellent fixation was noted. Reduction was, in fact, better with the nail. Three distal screws were inserted, two were bicortical, the third was unicortical. Excellent fixation was noted with all 3 screws with good bone quality. Two proximal screws were inserted, these were bicortical as well. A jig was used for this purpose. The proximal screw had to be free-handed as it did not follow the jig. An incision was made over the lateral aspect of the femur. The skin and subcutaneous tissue were dissected. IT band was incised and the screws were inserted. Care was taken to take multiple C-arm images to ensure a good trajectory of the nail and the screws. Irrigation was given. Bone graft was inserted, DVM at the fracture site due to the long spiral nature and the fact that we had to do an open reduction. The IT band was closed with #2 Ethibond. The skin incision was closed with 2-0 Vicryl and thompson. Next, sterile dressing was applied. The knee was placed in a knee immobilizer. DISPOSITION: Good. The patient was extubated and taken to the recovery without any complication. PLAN: To remain toe-touch weightbearing. Range of motion from 0 to 70 degrees. We will start anticoagulation tomorrow. MD SHANIQUE Wise/RAY TID: [id number] RECEIPT: [id number] DICTATED BY:XIOMARA PARKS MD DICTATED DATE/TIME:09/25/25 1446 ELECTRONICALLY SIGNED BY: ELECTRONICALLY CO-SIGNED BY: [place] [address] Ph: [phone] DIAGNOSTIC IMAGING Diagnostic Imaging Report : [id number] Signed PATIENT: NANCY FRIEDMAN ACCT: [id number] UNIT: [id number] : 1990 LOC: CENTRAL ROOM / BED: [address] [place] [address] AGE / SEX: 35 / M ADM STATUS: ADM IN SERVICE 5639 ORDERING PHYSICIAN: HECTOR COOK RESIDENT PROCEDURE(s): ECIDC - ECHO 2D MODE CARDIAC DOP REASON: ?CHF/cardiomyopathy ORDER NUMBER(s): [id number], ACCESSION NUMBER(s): [id number] APPROVED REPORT EXAM: Two-dimensional and M-mode echocardiogram with Doppler and color Doppler. Blood Pressure: 134/76 mmHg INDICATION ?chf/ cardiomyopathy RISK FACTORS Height: 6'0, Weight: 181 DIMENSIONS LVDd 4.3 (3.8-5.7cm) LA (2D) 3.1 (1.9-4.0cm) Aortic Root 3.3 (2.0- 3.7cm) LVDs 2.9 (2.5-4.0cm) LA (MM) (1.9-4.0cm) Aortic Cusp Exc 1.9 (1.5- 2.0cm) EF (%) 60.0 (55-70%) Rt. Atrium 3.8 (1.9-4.0cm) Asc. Aorta 2.7 cm IVSd 1.1 (0.7-1.1cm) RV (D) 3.6 (1.8-2.4cm) PWd 0.9 (0.7-1.1cm) Mitral Valve Mitral Mitral Stenosis E wave 0.72m/s MV Mean GR. mmHg A wave 0.58m/s MV Peak GR. 76mmHg E/A ratio 1.2 2D MVA cm2 DECEL Time 192ms PRESS 1/2 Time ms Aortic Valve Aortic Valve Aortic Stenosis V1 0.97m/s AO Mean GR. 4mmHg V2 1.23m/s AO Peak GR. 6mmHg LVOT Diameter 2.2 (1.8-2.4cm) Doppler KAMILA 3.00cm2 Pulmonic Valve V2 1.01m/s Conclusion Technically good study. Sinus rhythm. Normal chamber sizes. Normal valves. Left ventricular function is preserved at 60% with normal RV function. Dopplers normal. No pericardial effusion masses or vegetations. SIGNED BY: ABELINO MCCOY Sr., MD SIGNED DATE/TIME: 09/26/25 1158 CC: Patient: NANCY FRIEDMAN Acct: [id number] : 1990 Loc: CENTRAL Age/Sex: 35/M [id number] Progress Note Progress Note Ortho Surgeon: Dr. Parks Procedure: Left distal femur open reduction and internal fixation with retrograde intramedullary nail Diagnosis: Left distal femur fracture Post-Operative Day: 1 SUBJECTIVE The patient was seen and examined today at bedside. He is status post left distal femur open reduction and internal fixation with retrograde intramedullary nail performed by Dr. Parks. The patient reports doing well overall. Pain is well controlled. He denies chest pain, shortness of breath, fevers, chills, numbness, tingling, or new weakness. No acute complaints at this time. Patient is tolerating post-operative course without distress. OBJECTIVE General: Patient is awake, alert, and in no acute distress. Vital Signs: Reviewed and stable at time of evaluation. Left Lower Extremity: Post-operative knee brace in place, set from 070 degrees. Surgical dressing clean, dry, and intact. No excessive swelling, erythema, or drainage noted. Compartments soft and compressible. Distal pulses palpable. Sensation intact to light touch. Motor function intact distally. Grossly neurovascularly intact. Physical Therapy: Patient has initiated physical therapy. ASSESSMENT Left distal femur fracture, status post open reduction and internal fixation with retrograde intramedullary nail stable post-operative course. PLAN Continue post-operative knee brace locked at 070 degrees. Weight-bearing status: Toe-touch weight-bearing to the left lower extremity until next follow-up. Physical Therapy: Continue per protocol. Anticoagulation: May initiate today per hospitalist team recommendations. Pain Control: Continue current pain management regimen per hospitalist Follow-Up: Orthopedic clinic follow-up in 2 weeks post-discharge. Precautions: Patient was counseled on return precautions, including worsening pain, numbness, tingling, increased swelling, fevers, wound drainage, or any other concerns. Plan discussed with: Patient, Other (bedside nurse) Visit Coding Surgery Date of Service if different f: Sep 26, 2025 Billing Provider: YOUNG RODRIGEZ Surgery Visit Codes: 70436 - INP CONSULT <55 MIN YOUNG RODRIGEZ Sep 26, 2025 16:39 E/M VISIT PERFORMED BY: TRANSCRIBED BY:YOUNG RODRIGEZ TRANSCRIBED DATE/TIME:09/26/25 163 ELECTRONICALLY SIGNED BY:YOUNG RODRIGEZ 09/26/25 1639 ELECTRONICALLY CO-SIGNED BY: Patient Name: NANCY FRIEDMAN Acct: [id number] Room: [facility] /Bed: B Attending Physician: HECTOR COOK RESIDENT Loc: TELE-CENTR Unit: [id number] CONSULTATION REPORT . ................................................................................ ............................................................................... Consult Note Consult Consult Note Consulting Service: Orthopedic Surgery Reason for Consult: Left distal femur fracture History of Present Illness Mr. Link James is a patient who presents status post ground-level fall occurring one day prior to evaluation. The patient reports falling directly onto a flexed left knee, immediately experiencing sudden onset pain, swelling, and inability to bear weight on the left lower extremity. He was evaluated in the emergency department where X-rays demonstrated a distal femur fracture, and he was subsequently admitted as an inpatient. Orthopedic surgery was consulted for further evaluation and management. The patient denies numbness, tingling, or weakness in the left lower extremity. Pain is currently well controlled. Past Orthopedic History: History of left medial tibial plateau fracture, status post open reduction and internal fixation with plate and screws approximately two years ago, now healed. Patient reports residual mild flexion posture of the left knee and ambulates with slight flexion since that surgery. Past Medical History Reviewed per chart. Past Surgical History Right tibial plateau ORIF (healed) Medications Reviewed per chart. Physical Examination General: Awake, alert, in no acute distress. Left Lower Extremity: Significant swelling about the left knee No open wounds or skin compromise No erythema, warmth, or signs of infection Compartments of the quadriceps and calf are soft Neurovascularly intact: Able to wiggle toes and ankle Sensation intact No numbness or tingling No pain out of proportion to exam Imaging X-ray of the left femur/knee reviewed Findings consistent with distal femur fracture Assessment Left distal femur fracture status post ground-level fall History of left tibial plateau ORIF, healed Plan Discussed treatment options with the patient including: Open versus closed reduction Intramedullary nail versus plate fixation Risks, benefits, and alternatives were discussed. Surgical consent completed (obtained by nursing staff). NPO after midnight Plan for operative fixation tomorrow with Dr. Parks Continue pain control Maintain bzy-[id number]-dxteahs to the left lower extremity until surgery. Placed in Long Leg Splint with mild flexion Monitor neurovascular status every 2 Hrs Patient was seen and examined. All questions were answered, and the patient agrees with the plan. Plan discussed with: Patient, Other (bedside nurse) Visit Coding Surgery Date of Service if different f: Sep 24, 2025 Billing Provider: YOUNG RODRIGEZ Surgery Visit Codes: 78483 - INP CONSULT <55 MIN YOUNG RODRIGEZ Sep 24, 2025 13:06 DICTATED BY:YOUNG RODRIGEZ DICTATED DATE/TIME:09/24/25 1306 ELECTRONICALLY SIGNED BY:YOUNG RODRIGEZ 09/24/25 1306 ELECTRONICALLY CO-SIGNED BY:XIOMARA PARKS MD09/25/25 0939 Condition at Discharge: Stable Final Diagnosis/Problems List #acute fracture left distal diaphysis of femur #S/P open reduction and intramedullary retrograde nail. # status post fall # transaminitis # history of alcoholism # toxic encephalopathy # alcohol intoxication Discharge Disposition: Home Discharge Instruct/Medications Diet: Regular Activity: See Comment Activity comment: As recommended Follow Up/Referral: DC clinic PCP Orthopedic surgeon Outpatient physical therapy after getting referral from PCP Medications: Per EMR Scheduled Folic Acid (Folic Acid), 1 MG PO DAILY Hydrocodone-Acetaminophen (Hydrocodone Bitartrate/AC 10-325 mg), 1 TAB PO QIDP Pantoprazole Sodium Sesquihydr (Pantoprazole Sodium), 40 MG PO DAILY Rivaroxaban (Xarelto), 1 TAB PO DAILY Thiamine HCl (Thiamine Hydrochloride), 100 MG PO DAILY Scheduled PRN Acetaminophen (Tylenol), 650 MG PO Q6HP PRN Docusate Sodium (Colace), 1 CAP PO BID PRN Ibuprofen (Ibuprofen), 1 TAB PO Q6HPRN PRN Discharge Statement: "Patient was advised to return to the ER or call 911 if any headaches, dizziness, shortness of breath, chest pain, abdominal pain, bleeding, fevers, or worsening of medical condition. Patient was counseled about treatment plan, medications, possible side effects, patientverbalized understanding. All questions were answered to the best of my ability. This discharge took greater then 30 minutes in planning, reviewing documentation, counseling the patient, and discussing with other team members." ASSESSMENT ASSESSMENT Assessment # fracture left distal diaphysis of femur # status post fall S/P open reduction and intramedullary retrograde nail. Visit Coding STANDARD RES Billing Provider: TALA CARDONA MD Date of Service if different f: Sep 26, 2025 Common Visit Codes: 04827-XNR/OBS DISCH DAY >30min HECTOR COOK RESIDENT Sep 26, 2025 18:36 TALA CARDONA MD Sep 30, 2025 20:33
[2025-09-26] MEDS ORDERED: RIVA10TA PO (18:37)
[2025-09-26] MEDS ORDERED: FOLI-119 PO (18:39)
[2025-09-26] MEDS ORDERED: DOCU-94 PO (18:39)
[2025-09-26] MEDS ORDERED: THIA100T13 PO (18:39)
[2025-09-27] MEDS ORDERED: RIVAROXABAN 10 MG TAB PO SCH (10:00)
[2025-09-27] MEDS ORDERED: HYDR-4798 PO (11:25)
[2025-10-03] MEDS ORDERED: CHOL500021 OR (09:06)
== END 2025-09-26 18:30 | disposition home or self-care (01) | DRG 480 ==
LOC: EDBD 22:59 → ER 22:59 → OVERFLOW 09-24 02:32 → TELE-CENTR 09-24 06:40 → CENTRAL 09-26 09:16
PROVIDERS: ADMIT Student in an Organized Health Care Education/Training Program; ATTEND Student in an Organized Health Care Education/Training Program
PROC: 0QSC04Z Reposition Left Lower Femur with Internal Fixation Device, Open Approach (ICD-10-PCS; principal; 2025-09-25 14:01)
DX: S72.402A Unspecified fracture of lower end of left femur, initial encounter for closed fracture (principal); G92.8 Other toxic encephalopathy; F10.129 Alcohol abuse with intoxication, unspecified; S72.92XP Unspecified fracture of left femur, subsequent encounter for closed fracture with malunion; F14.10 Cocaine abuse, uncomplicated; R74.01 Elevation of levels of liver transaminase levels; D72.829 Elevated white blood cell count, unspecified; Y90.6 Blood alcohol level of 120-199 mg/100 ml; Y93.89 Activity, other specified; Y92.89 Other specified places as the place of occurrence of the external cause; Y99.8 Other external cause status
CPT/HCPCS: 36415; 71045; 73590; 73700; 76000; 76705; 80048; 80053; 80074; 80307; 80320; 81001; 82140; 82306; 82607; 82746; 83036; 83735; 83880; 84443; 85025; 85610; 85730; 86850; 86900; 86901; 87040; 93005; 93306; 96365; 96375; 97110; 97116; 97163; 97530; G0378; J0131; J1100; J1885; J2250; J2405; J3490; J7060